=== PATIENT | male | born 1935 | race Caucasian/White ===

== ENCOUNTER 2017-04-13 17:35 | Inpatient (IN) ==
--- NOTE | 2017-04-13 18:01 | Emergency Department Note ---
Disposition Clinical Impression: Urinary retention, Obstructive uropathy, CLL (chronic lymphocytic leukemia), Hyponatremia Leukocytosis Qualifiers: Leukocytosis type: unspecified Qualified Code(s): D72.829 - Elevated white blood cell count, unspecified Disposition: Admitted As Inpatient Condition: Fair Referrals: Grady Bhagat DO [Primary Care Provider] - Forms: Work/School Release, ED Satisfaction Letter Time of Disposition: 19:09 General Adult HPI - General Chief complaint: ED Abdominal Pain Stated complaint: Constipation/Urinary retention x1 week Time Seen by Provider: 04/13/17 17:54 Source: patient Limitations: no limitations Nursing Notes Reviewed: Yes Vital Signs Reviewed: Yes - History of Present Illness HPI Narrative: 82-year-old has had trouble initiating urine for the last week. Now he feels constipated also. Pt Subjective Complaint: Unable to urinate Onset (ago): day(s) Location: abdomen Radiation: non-radiation Pain Severity: mild Pain Scale: 1 Consistency: constant Improves with: nothing Worsens with: nothing Treatments Prior to Arrival: none - Related Data Allergies Allergy/AdvReac Type Severity Reaction Status Date / Time bacitracin Allergy Hives Verified 04/13/17 17:41 [From Neosporin ([id number])] cephalexin [From Keflex] Allergy Hives Verified 04/13/17 17:41 Neomycin Allergy Hives Verified 04/13/17 17:41 [From Neosporin ([id number])] polymyxin B Allergy Hives Verified 04/13/17 17:41 [From Neosporin ([id number])] All systems ED: reviewed and negative except as stated. Constitutional: Denies: fever, chills, weakness, weight change Eyes: Denies: eye pain, eye discharge, vision change ENT ED: Denies: ear pain, throat pain, dental pain, hearing loss, epistaxis, congestion, dysphagia Cardiovascular: Denies: chest pain, palpitations, dyspnea on exertion, edema, syncope Respiratory: Denies: cough, dyspnea, wheezes, hemoptysis, stridor Gastrointestinal: Reports: constipation. Denies: abdominal pain, nausea, vomiting, diarrhea, hematemesis, melena, hematochezia Genitourinary: Reports: urgency. Denies: dysuria, frequency, hematuria Musculoskeletal: Denies: back pain, neck pain, arthralgia, myalgia Integumentary: Denies: rash, abrasion, lesions Neurological: Denies: headache, weakness, numbness, paresthesias, confusion, abnormal gait, vertigo Psychiatric: Denies: anxiety, depression, suicidal thoughts, homicidal thoughts , auditory hallucinations, visual hallucinations Endocrine: Denies: fatigue Hematological/Lymphatic: Denies: easy bleeding, easy bruising Allergic/Immunologic: Denies: facial swelling, urticaria Past Medical History - Past Medical History Medical history: Reports: cancer, hyperlipidemia, hypertension - Social History Smoking Status: Never smoker Smokeless Tobacco Status: No Alcohol use: Reports: none Drug use: Reports: none Physical Exam - General Limitations: no limitations General appearance: alert - Head Head exam: atraumatic, normocephalic, normal inspection - Eye Eye exam: Present: normal appearance, PERRL, EOMI - ENT ENT exam: normal exam, normal oropharynx, mucous membranes moist - Neck Neck exam: Present: normal inspection, full ROM, trachea midline - Chest Chest inspection: Present: normal inspection, symmetric chest wall rise - Respiratory Respiratory exam: Present: normal lung sounds bilaterally - Cardiovascular Cardiovascular exam: Present: regular rate, normal rhythm, normal heart sounds - Abdominal Exam Abdominal exam: Present: soft, tenderness. Absent: guarding, rebound Abdominal tenderness: Present: suprapubic - Extremities Exam Extremities exam: Present: normal inspection, full ROM. Absent: tenderness, pedal edema - Expanded Lower Extremity Exam Neurovascular/Tendon exam: Absent: motor deficit, sensory deficit, tendon deficit Gait: observed and normal - Back Exam Back exam: Present: normal inspection, full ROM. Absent: tenderness - Neurological Exam Neurological exam: Present: alert, oriented X3 - Psychiatric Psychiatric exam: Present: normal affect, normal mood Course - Reevaluation(s) Reevaluation #1: Wiseman catheter was placed with drainage of a total of 2400 mL of urine. Creatinine is elevated at 2.18 his white count is 49,800. We attempted to get old records but were unsuccessful. We will admit the patient IV antibiotics Wiseman drainage gentle hydration to see if the creatinine improves attempt to get old records from Vitaliy's daughters. Time: 19:07 - Consultations Consultation #1: Discussed with Dr.Tress hernandez. Time: 19:28 Consultation #2: Discussed with Dr. Foley, hydrate antibiotics Time: 19:29 Vital Signs Temperature 97.9 F 04/13/17 17:37 Pulse Rate 87 04/13/17 17:37 Respiratory Rate 18 04/13/17 17:37 Blood Pressure 119/77 04/13/17 17:37 O2 Sat by Pulse Oximetry 95 04/13/17 17:37 Temperature 97.9 F 04/13/17 17:37 Pulse Rate 89 04/13/17 18:45 Respiratory Rate 18 04/13/17 18:45 Blood Pressure 126/83 04/13/17 18:45 O2 Sat by Pulse Oximetry 95 04/13/17 18:45 Oxygen Delivery Oxygen Delivery Room Air Medical Decision Making - Lab Data Result diagrams: 04/13/17 18:10 04/13/17 18:10 Lab Results 04/13/17 04/13/17 04/13/17 Range/Units 18:10 18:10 18:27 WBC 49.8 H* (4.3-11.1) K/mcL RBC 5.03 (4.19-5.50) M/mcL Hgb 15.2 (12.9-16.9) g/dL Hct 44.4 (37.5-50.1) % MCV 88.3 (83.0-100.0) fL MCH 30.2 (28.0-33.3) pg MCHC 34.2 (31.6-35.5) g/dL RDW 13.2 (11.5-14.5) % Plt Count 235 (140-400) K/mcL MPV 9.3 L (9.4-12.4) fL Seg Neutrophils % 32.0 % Lymphocytes % 61.0 % Neutrophils # 15.9 H (1.6-8.9) K/mcL Lymphocytes # 30.4 H (0.6-4.6) K/mcL Reactive Lymphocytes Present A (Not Present) Smudge Cells Present A (Not Present) Platelet Estimate Normal (Normal) Sodium 124 L (136-145) mEq/L Potassium 3.8 (3.5-4.5) mEq/L Chloride 92 L (98-109) mEq/L Carbon Dioxide 18 L (19-29) mEq/L BUN 63 H (8-26) mg/dL Creatinine 2.18 H (0.72-1.25) mg/dL Est GFR ( Amer) 35 L (> 60) Est GFR (Non-Af Amer) 29 L (> 60) BUN/Creatinine Ratio 29 H (6-26) Glucose 117 H (70-99) mg/dL Calculated Osmolality 277 L (280-300) Calcium 8.8 (8.6-10.8) mg/dL Urine Color Yellow (Yellow) Urine Clarity Clear (Clear) Urine pH 5.0 (5.0-8.0) pH Units Ur Specific [place] 1.010 (1.010-1.025) Urine Protein Negative (Neg-Trace) mg/dL Urine Glucose (UA) Normal (Normal) mg/dL Urine Ketones Negative (Negative) mg/dL Urine Blood Moderate H (Negative) Urine Nitrite Negative (Negative) Urine Bilirubin Negative (Negative) Urine Urobilinogen Normal (Normal) mg/dL Ur Leukocyte Esterase Trace H (Negative) Urine Microscopic RBC 5-15 H (0-3) per hpf Urine Microscopic WBC 5-15 H (0-3) per hpf Ur Squamous Epith Cells Moderate H (None-Few) per lpf Urine Bacteria None Seen (None-Few) per hpf Hyaline Casts None Seen (None-Few) per lpf Ur Culture Indicated? YES A (NO)
[2017-04-13 18:28] LABS: Mean Corpuscular HGB Conc 34.2 g/dL (31.6-35.5); Mean Corpuscular Hemoglobin 30.2 pg (28.0-33.3); Red Cell Distribution Width 13.2 % (11.5-14.5)
[2017-04-13 18:29] LABS: Hematocrit 44.4 % (37.5-50.1); Hemoglobin 15.2 g/dL (12.9-16.9); Mean Corpuscular Volume 88.3 fL (83.0-100.0); Mean Platelet Volume 9.3 fL (9.4-12.4); Platelet Count 235 K/mcL (140-400); Red Blood Count 5.03 M/mcL (4.19-5.50)
[2017-04-13 18:40] LABS: Bilirubin,Urine Negative (Negative); Blood,Urine Moderate (Negative); Clarity,Urine Clear (Clear); Color,Urine Yellow (Yellow); Glucose,Urine (UA) Normal (Normal); Ketones,Urine Negative (Negative); Leukocyte Esterase,Urine Trace (Negative); Nitrite,Urine Negative (Negative); Protein,Urine Negative (Neg-Trace); Urobilinogen,Urine Normal (Normal)
[2017-04-13 18:41] LABS: Calcium 8.8 mg/dL (8.6-10.8); Potassium 3.8 mEq/L (3.5-4.5)
[2017-04-13 18:43] LABS: Bacteria,Urine None Seen per hpf (None-Few); Hyaline Casts,Urine None Seen per lpf (None-Few); Squamous Epithelial Cell,Urine Moderate per lpf (None-Few)
[2017-04-13 18:52] LABS: Lymphocytes # 30.4 K/mcL (0.6-4.6)
[2017-04-13 18:53] LABS: Neutrophils # 15.9 K/mcL (1.6-8.9); Platelet Estimate Normal (Normal); Reactive Lymphocytes Present (Not Present); Smudge Cells Present (Not Present)
[2017-04-13] MEDS ORDERED: Levofloxacin 500 MG/100 ML 500 MG/100 ML BAG IVPB ONE (19:06)
[2017-04-13] MEDS: 0.9 % Sodium Chloride 1,000 ML IVC SCH (19:36)
[2017-04-13] MEDS ORDERED: *HR* OxyCODONE Immed Rel 5 MG TABLET PO PRN (19:54)
[2017-04-13] MEDS ORDERED: Naloxone 0.4 MG/ML INJ IVP PRN (19:54)
[2017-04-13] MEDS ORDERED: Ondansetron 4 MG/2 ML VIAL IVP PRN (19:54)
[2017-04-13] MEDS ORDERED: Acetaminophen 325 MG TABLET PO PRN (19:54)
[2017-04-13] MEDS ORDERED: *HR* Morphine 2 MG/ML SYRINGE IVP PRN (19:54)
[2017-04-13] MEDS ORDERED: Nitroglycerin 0.4 MG TAB.SUBL SL PRN (20:00)
[2017-04-13] MEDS ORDERED: Ipratropium/Albuterol Neb 3 ML IH PRN (20:00)
--- NOTE | 2017-04-13 20:03 | Internal Med History&Physical ---
Date of Encounter: 04/13/17 Time of Encounter: 20:01 Assessment and Plan (1) Sepsis Current visit: Yes Status: Acute Sepsis Secondary to UTI versus acute bacterial bronchitis Continue Levaquin started in the emergency room Continue hydration, order lactic acid and blood cultures Omeprazole for GI prophylaxis and Lovenox for DVT prophylaxis. The patient will be admitted as inpatient, expected to stay more than 2 midnights. DNR CC arrest DNI. Time spent on this admission 40 minutes. High risk due to sepsis Qualifiers: Sepsis type: sepsis due to unspecified organism Qualified Code(s): A41.9 - Sepsis, unspecified organism (2) Bronchitis Current visit: Yes Status: Acute Viral versus bacterial (3) Acute renal failure Current visit: Yes Status: Acute Acute on chronic renal failure possible CK D3/4 Possibly related to obstructive uropathy, keep Wiseman catheter Await report from CT scan of the abdomen sent from the ER and consider urology consult if needed Qualifiers: Acute renal failure type: unspecified Qualified Code(s): N17.9 - Acute kidney failure, unspecified (4) Hypertension Current visit: Yes Status: Acute Continue amlodipine, Toprol Hold enalapril due to acute renal failure use hydralazine IV as needed Qualifiers: Hypertension type: essential hypertension Qualified Code(s): I10 - Essential (primary) hypertension (5) CLL (chronic lymphocytic leukemia) Current visit: Yes Status: Acute Leukocytosis likely related to infection in combination to CLL Dr. Hernández was contacted (6) Hyponatremia Current visit: Yes Status: Acute Unclear etiology, possibly related to volume overload/urinary retention Send urine sodium and osmolality Monitor sodium levels (7) Leukocytosis Current visit: Yes Status: Acute Qualifiers: Leukocytosis type: lymphocytosis Qualified Code(s): D72.820 - Lymphocytosis (symptomatic) (8) Obstructive uropathy Current visit: Yes Status: Acute Internal Medicine - H&P: HPI Chief complaint: Constipation and urinary retention Admitted From: Emergency Dept History of present illness: Mr. Marinelli is a 82 year old male with a past medical history of CLL without any treatment, BPH, TIAs, came to emergency room complaining of severe constipation and and difficulty voiding for the past week. Wiseman catheter was placed at the emergency room and 2400 mL of urine were obtained. He says he experienced some dysuria. Also he started bringing up dark phlegm 3 days ago and has been coughing constantly. His heart rate was 96 white blood cells are 49.8 lymphocytes 30.4 neutrophils 15.9 with a smudge cells. Sodium was found to be 124 BUN 63 and creatinine 2.18. He is unaware of kidney problems in the past. Efforts were done to obtain information from [facility] that have been unsuccessful so far. His urinalysis shows 15 white blood cells. The physician contacted Dr. Jones from the oncology service who recommended the patient's admission and evaluation in the morning. Levaquin was started. Feels very weak and denies any other complaint at the moment. 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 Everyone is healthy Internal Medicine - H&P: Meds Allergies bacitracin [From Neosporin ([id number]-[id number])] Allergy (Verified 04/13/17 17:41) Hives cephalexin [From Keflex] Allergy (Verified 04/13/17 17:41) Hives Neomycin [From Neosporin ([id number])] Allergy (Verified 04/13/17 17:41) Hives polymyxin B [From Neosporin ([id number]-[id number])] Allergy (Verified 04/13/17 17:41) Hives All Systems PM: A 10-system review of systems was performed and is negative for pertinent findings except as documented above in the HPI. Review of systems: Short of breath, weak. Other systems out of the 10 reviewed were negative. - Constitutional Vitals: Temp Pulse Resp BP Pulse Ox 97.9 F 83 18 138/76 92 04/13/17 17:37 04/13/17 19:37 04/13/17 18:45 04/13/17 19:37 04/13/17 19:37 General appearance: Present: A&O X 3 - Head Head exam: Present: atraumatic, normocephalic - Eye Eye exam: Present: PERRL, conjuntiva pink, sclera anicteric Pupils: Present: PERRL - Neck Neck exam general surgery: Present: supple, trachea midline. Absent: lymphadenopathy - Respiratory Respiratory exam: Present: CTAB, rales (Diffuse crackles). Absent: accessory muscle use, rhonchi, wheezes - Cardiovascular Cardiovascular exam: Present: RRR, +S1, +S2. Absent: diastolic murmur, gallop, rubs, systolic murmur - GI/Abdominal GI/Abdominal exam: Present: normal bowel sounds, soft, tenderness (Mild lower abdominal tenderness), no peritoneal signs. Absent: distended - Extremities Exam Extremities exam: Present: warm, radial pulses palpable and symetrical. Absent : calf tenderness, cyanotic, pedal edema - Neurological Exam Neurological exam: Present: CN II-XII intact, oriented X3, no focal deficits. Absent: pronater drift, facial droop, speech deficit - Skin Skin exam: Present: dry, intact Additional comments: Wiseman catheter in place Internal Med - H&P Results - Labs CBC & Chem 7: 04/13/17 18:10 04/13/17 18:10 Labs: Short CBC 04/13/17 Range/Units 18:10 WBC 49.8 H* (4.3-11.1) K/mcL Hgb 15.2 (12.9-16.9) g/dL Hct 44.4 (37.5-50.1) % Plt Count 235 (140-400) K/mcL Neutrophils # 15.9 H (1.6-8.9) K/mcL BMP 04/13/17 18:10 Sodium 124 L Potassium 3.8 Chloride 92 L Carbon Dioxide 18 L BUN 63 H Creatinine 2.18 H Glucose 117 H Calcium 8.8 Urine 04/13/17 Range/Units 18:27 Urine Color Yellow (Yellow) Urine Clarity Clear (Clear) Urine pH 5.0 (5.0-8.0) pH Units Ur Specific [place] 1.010 (1.010-1.025) Urine Protein Negative (Neg-Trace) mg/dL Urine Glucose (UA) Normal (Normal) mg/dL
[2017-04-13 20:13] LABS: INR 1.2; Prothrombin Time 12.8 Seconds (9.4-12.1)
[2017-04-13 21:57] LABS: Sodium, Urine < 20.0 mEq/L
[2017-04-13 22:33] LABS: Osmolality,Urine 248 mOsm/kg (300-1090)
[2017-04-14] MEDS: Lactulose Oral Soln 20 GM/30 ML UDC PO SCH ×2 (04:55→05:19)
[2017-04-14] MEDS ORDERED: Menthol 9.1 MG LOZENGE PO PRN (05:04)
[2017-04-14 05:17] LABS: Hemoglobin 14.2 g/dL (12.9-16.9); Immature Platelets 2.6 % (1.1-6.1); Mean Corpuscular HGB Conc 33.8 g/dL (31.6-35.5); Mean Corpuscular Hemoglobin 30.2 pg (28.0-33.3); Mean Corpuscular Volume 89.4 fL (83.0-100.0); Mean Platelet Volume 9.7 fL (9.4-12.4); Red Blood Count 4.7 M/mcL (4.19-5.50); Red Cell Distribution Width 13.2 % (11.5-14.5)
[2017-04-14 05:32] LABS: Calcium 8.4 mg/dL (8.6-10.8); Potassium 3.3 mEq/L (3.5-4.5)
[2017-04-14] MEDS ORDERED: *HR* Enoxaparin 30 MG/0.3 ML SYRINGE SQ SCH (06:00)
[2017-04-14] MEDS: amLODIPine 5 MG TABLET PO SCH (07:58)
[2017-04-14] MEDS: Aspirin Enteric Coated 81 MG Tablet PO SCH (07:58)
[2017-04-14] MEDS: Metoprolol XL (24 HR) Succ 25 MG TAB.ER.24H PO SCH (07:58)
--- NOTE | 2017-04-14 08:40 | Oncology Inp Consult Note ---
Date of Encounter: 04/14/17 Time of Encounter: 12:00 Assessment and Plan (1) CLL (chronic lymphocytic leukemia) Status: Chronic Assessment and plan: Lymphocytic leukemia with lymphocytosis without any anemia or thrombocytopenia patient had not required any treatment No B symptosm or adenopathy/organomegaly. Likely stage 0. UTI/? retention, hx BPH Wiseman drainage. Levafloxacin. UC pending. WBC trending down. Lab works discussed with patient. He will follow up with his providers for CLL and return to our clinic as needed. Plan reviewed with patient and family members. - Data of Consult Requesting Physician: Pedro Velasco MD Primary Care Provider: Grady Bhagat, - Consult Narrative Reason for consult: CLL History of present illness: Mr. Marinelli is a 82 year old male with a known diagnosis of chronic lymphocytic leukemia followed outside with medical history also significant for benign prostatic hypertrophy, transient ischemic attacks, hospitalized with possible UTI/bronchitis patient had difficulty eating and a Wiseman catheter was placed which drained 2.4 L of urine. Urinalysis was? Positive was started on levofloxacin oncology service consulted as patient had a very high white count of 49,000 lymphocytosis and with his prior diagnosis of chronic lymphocytic leukemia. Renal insufficiency, dehydration requiring hospitalization. As per patient report he has not required treatment for CLL. He is a never smoker. X-ray showed no acute process on admission. A CT scan of the abdomen showed? Urethritis with thickening and no stones or hydronephrosis. Patient is being followed by his PCP for CLL, was diagnosed with lab works by oncologist Dr. Lindsey/?[place]. No palpable lumps B symptoms. A 14 point review of systems is completely otherwise negative. Past Med Surg Social Fam HX - Past Medical History Medical history: cancer, hyperlipidemia, hypertension, other Psychiatric history: no psych history - Past Surgical History Surgical History: appendectomy, herniorrhaphy - Social History Smoking Status: Never smoker Packs per day: Quit 40 years ago Smokeless Tobacco Status: No Alcohol use: none Drug use: none - Family History Mother Living Status: Hx Family Cancer: Yes Medications and Allergies Aspirin 81 mg PO DAILY 04/14/17 [History] Enalapril Maleate [Vasotec] 5 mg PO BID 04/14/17 [History] Metoprolol XL (24 HR) Succ [Toprol XL] 25 mg PO DAILY 04/14/17 [History] Allergies bacitracin [From Neosporin ([id number])] Allergy (Verified 04/14/17 08:24) Hives cephalexin [From Keflex] Allergy (Verified 04/14/17 08:24) Hives Neomycin [From Neosporin (gms-lne-loeet)] Allergy (Verified 04/14/17 08:24) Hives polymyxin B [From Neosporin ([id number])] Allergy (Verified 04/14/17 08:24) Hives Review of systems: as in HPI Oncology - Exam - Constitutional Vitals: Temp Pulse Resp BP Pulse Ox 98.0 F 84 18 143/73 97 04/14/17 07:00 04/14/17 07:00 04/14/17 07:00 04/14/17 07:00 04/14/17 07:00 General appearance: average body habitus, no acute distress - Head Head exam: Present: atraumatic, normal inspection - Eye Eye exam: Present: sclera anicteric - ENT ENT exam: Present: mucous membranes moist - Neck Additional comments: no thyromegaly or adenopathy - Respiratory Respiratory exam: Present: CTAB - Cardiovascular Cardiovascular exam: Present: +S1, +S2 - GI/Abdominal GI/Abdominal exam: Present: normal bowel sounds, soft Additional comments: no HSM - Extremities Exam Extremities exam: Present: normal inspection - Neurological Exam Neurological exam: Present: alert, oriented X3, no focal deficits - Psychiatric Psychiatric exam: Present: normal mood - Skin Skin exam: Present: dry, normal color Oncology - Results - Labs Labs: Short CBC 04/14/17 Range/Units 04:33 WBC 20.7 H D (4.3-11.1) K/mcL Hgb 14.2 (12.9-16.9) g/dL Hct 42.0 (37.5-50.1) % Plt Count 200 (140-400) K/mcL BMP 04/14/17 04/14/17 00:01 04:33 Sodium 130 L 133 L Potassium 3.3 L Chloride 101 Carbon Dioxide 22 BUN 50 H D Creatinine 1.60 H Glucose 120 H Calcium 8.4 L - Imaging and Cardiology CT scan - abdomen Status: image reviewed by me Consult Discharge Plan - Plan Referrals: Grady Bhagat DO [Primary Care Provider] -
[2017-04-14] MEDS ORDERED: *HR* OxyCODONE Immed Rel 5 MG TABLET PO PRN (11:13)
--- NOTE | 2017-04-14 12:28 | Internal Med Progress Note ---
Date of Encounter: 04/14/17 Time of Encounter: 08:35 - Assessment and plan (1) Sepsis Current Visit: Yes Status: Suspected Assessment and plan: Follow urine cultures. Patient with sepsis most likely from acute urinary tract infection. CT of the abdomen and pelvis shows ureteritis involving the right ureter. Will follow culture results. On IV antibiotics. Moderate risk for complications. Qualifiers: Sepsis type: Escherichia coli Qualified Code(s): A41.51 - Sepsis due to Escherichia coli [E. coli] (2) Acute renal failure Current Visit: Yes Status: Acute Assessment and plan: Improving renal function. Continue IV hydration. Replace potassium. Qualifiers: Acute renal failure type: with acute tubular necrosis Qualified Code(s): N17.0 - Acute kidney failure with tubular necrosis (3) Bronchitis Current Visit: Yes Status: Acute Assessment and plan: On IV antibiotics. Cough suppressants as needed (4) Hyponatremia Current Visit: Yes Status: Acute Assessment and plan: Improving. could be from hypovolemic hyponatremia. Continue intravenous replacement. (5) Leukocytosis Current Visit: Yes Status: Acute Assessment and plan: Improving. 20 today. Underlying CLL. With response to acute sepsis. Qualifiers: Leukocytosis type: lymphocytosis Qualified Code(s): D72.820 - Lymphocytosis (symptomatic) (6) Obstructive uropathy Current Visit: Yes Status: Acute Assessment and plan: Due to prostate enlargement. Wiseman catheter in place to relieve obstruction. CT of the abdomen does not show any obstructing stones but there is mild prominence of both renal collecting systems. We will start patient on Flomax for BPH. (7) Urinary retention Current Visit: Yes Status: Acute Assessment and plan: Likely from BPH (8) Benign prostate hyperplasia Current Visit: Yes Status: Acute Assessment and plan: Patient has severe prostatomegaly on CT scan. This is likely causing the patient's urinary retention. Started on Flomax. We will see how he responds to it. If patient continues to have poor urinary output and urinary retention despite the use of Flomax, we will discharge him on Wiseman catheter and arrange outpatient follow-up with urology. Qualifiers: Prostatic enlargement morphology: unspecified morphology Lower urinary tract symptom presence: symptoms present Qualified Code(s): N40.1 - Benign prostatic hyperplasia with lower urinary tract symptoms (9) CLL (chronic lymphocytic leukemia) Current Visit: Yes Status: Chronic Assessment and plan: Oncology consulted. Follow recommendations. - Subjective Interval history: Patient is feeling much better today. No abdominal pain. No nausea or vomiting. No dysuria. Has a Wiseman catheter in place. Tolerating diet well. No fever or chills reported overnight. - Constitutional Vitals: Temp Pulse Resp BP Pulse Ox 97.6 F 84 18 124/79 93 04/14/17 11:42 04/14/17 11:42 04/14/17 11:42 04/14/17 11:42 04/14/17 11:42 General appearance: Present: cooperative, A&O X 3, pleasant, no acute distress, answers questions appropriately - Neck Neck exam general surgery: Present: supple, trachea midline. Absent: lymphadenopathy - Respiratory Respiratory exam: Present: CTAB. Absent: accessory muscle use, rales, rhonchi, wheezes - Cardiovascular Cardiovascular exam: Present: RRR, +S1, +S2. Absent: diastolic murmur, gallop, rubs, systolic murmur - GI/Abdominal GI/Abdominal exam: Present: normal bowel sounds, soft, no peritoneal signs. Absent: distended, tenderness - Additional comments: Wiseman catheter in place with blood-tinged urine output - Extremities Exam Extremities exam: Present: warm, radial pulses palpable and symetrical. Absent : calf tenderness, cyanotic, pedal edema - Neurological Exam Neurological exam: Present: CN II-XII intact, oriented X3, no focal deficits, strengths equal and symetr throughout. Absent: facial droop, speech deficit Internal Medicine: Result - Labs CBC & Chem 7: 04/14/17 04:33 04/14/17 04:33 Labs: Short CBC 04/14/17 Range/Units 04:33 WBC 20.7 H D (4.3-11.1) K/mcL Hgb 14.2 (12.9-16.9) g/dL Hct 42.0 (37.5-50.1) % Plt Count 200 (140-400) K/mcL BMP 04/14/17 04/14/17 00:01 04:33 Sodium 130 L 133 L Potassium 3.3 L Chloride 101 Carbon Dioxide 22 BUN 50 H D Creatinine 1.60 H Glucose 120 H Calcium 8.4 L - ABG Interpretation ABG results: PT/INR, D-dimer PT 12.8 Seconds (9.4-12.1) H 04/13/17 18:10 Consult Discharge Plan - Plan Referrals: Grady Bhagat DO [Primary Care Provider] - - Attending Attestation This document has been at least partially created by [employer] recognition technology by Dr. Velasco. Errors in grammar, wording or other phrases may exist. If errors are found after the documentation is signed, they will be addressed individually in the addendum section of this document when appropriate.
[2017-04-14] MEDS: 0.9 % Sodium Chloride w KCl 20 MEQ/1,000 ML MLS IVC SCH (14:40)
[2017-04-14] MEDS ORDERED: Levofloxacin 500 MG/100 ML 500 MG/100 ML BAG IVPB SCH (19:30)
[2017-04-15] MEDS: 0.9 % Sodium Chloride w KCl 20 MEQ/1,000 ML MLS IVC SCH (02:35)
[2017-04-15] MEDS: Lactulose Oral Soln 20 GM/30 ML UDC PO SCH (05:32)
[2017-04-15] MEDS ORDERED: *HR* Enoxaparin 40 MG/0.4 ML SYRINGE SQ SCH (06:00)
[2017-04-15 06:23] LABS: Basophils # 0.1 K/mcL (0.0-0.2); Basophils % 0.3 %; Eosinophils # 0.1 K/mcL (0.0-0.6); Eosinophils % 0.3 %; Hematocrit 41.1 % (37.5-50.1); Hemoglobin 14.4 g/dL (12.9-16.9); Immature Granulocytes % 0.6 % (0-4); Lymphocytes # 16.3 K/mcL (0.6-4.6); Lymphocytes % 70.4 %; Mean Corpuscular Hemoglobin 31.3 pg (28.0-33.3); Mean Corpuscular Volume 89.3 fL (83.0-100.0); Mean Platelet Volume 9.1 fL (9.4-12.4); Monocytes # 0.9 K/mcL (0.0-1.3); Monocytes % 3.9 %; Neutrophils # 5.7 K/mcL (1.6-8.9); Platelet Count 191 K/mcL (140-400); Red Cell Distribution Width 13.4 % (11.5-14.5); Segmented Neutrophils % 24.5 %
[2017-04-15 06:46] LABS: BUN/Creatinine Ratio 28 (6-26); Calcium 8.5 mg/dL (8.6-10.8); Carbon Dioxide 21 mEq/L (19-29); Chloride 105 mEq/L (98-109); Glucose 127 mg/dL (70-99); Osmolality,Calculated 285 (280-300); Potassium 3.7 mEq/L (3.5-4.5); Sodium 134 mEq/L (136-145); eGFR For African Americans > 60 (> 60); eGFR For Non-African Americans > 60 (> 60)
[2017-04-15 06:48] VITALS: BP 158/93
[2017-04-15 06:48] LABS: Blood Urea Nitrogen 28 mg/dL (8-26)
[2017-04-15 06:59] LABS: Platelet Estimate Normal (Normal)
[2017-04-15 07:00] LABS: Reactive Lymphocytes Present (Not Present)
[2017-04-15] MEDS: Metoprolol XL (24 HR) Succ 25 MG TAB.ER.24H PO SCH (07:45)
[2017-04-15] MEDS: Aspirin Enteric Coated 81 MG Tablet PO SCH (07:45)
[2017-04-15] MEDS: amLODIPine 5 MG TABLET PO SCH (07:45)
[2017-04-15] MEDS ORDERED: Metoprolol XL (24 HR) Succ 25 MG TAB.ER.24H PO SCH (09:00)
[2017-04-15] MEDS: 0.9 % Sodium Chloride 1,000 ML IVC SCH (09:33)
--- NOTE | 2017-04-15 09:57 | Discharge Summary ---
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 (4) Hyponatremia Priority: Primary Status: Resolved (5) Acute renal failure Priority: Primary Status: Resolved Qualifiers: Acute renal failure type: unspecified Qualified Code(s): N17.9 - Acute kidney failure, unspecified (6) Hypertension Priority: Secondary Status: Chronic Qualifiers: Hypertension type: essential hypertension Qualified Code(s): I10 - Essential (primary) hypertension (7) Benign prostate hyperplasia Priority: Primary Status: Chronic Qualifiers: Prostatic enlargement morphology: unspecified morphology Lower urinary tract symptom presence: symptoms present Qualified Code(s): N40.1 - Benign prostatic hyperplasia with lower urinary tract symptoms - Discharge Medications Prescriptions: levoFLOXacin [Levaquin] 500 mg PO DAILY #11 tablet Metoprolol XL (24 HR) Succ [Toprol Xl] 50 mg PO DAILY #30 tab.er.24h Tamsulosin [Flomax] 0.4 mg PO DAILY #30 capsule Home Medications: Aspirin 81 mg PO DAILY 04/14/17 [History] Enalapril Maleate [Vasotec] 5 mg PO BID 04/14/17 [History] Metoprolol XL (24 HR) Succ [Toprol Xl] 50 mg PO DAILY #30 tab.er.24h 04/15/17 [ Rx] Tamsulosin [Flomax] 0.4 mg PO DAILY #30 capsule 04/15/17 [Rx] levoFLOXacin [Levaquin] 500 mg PO DAILY #11 tablet 04/15/17 [Rx] Allergies/Adverse Reactions: Allergies bacitracin [From Neosporin ([id number])] Allergy (Verified 04/14/17 08:24) Hives cephalexin [From Keflex] Allergy (Verified 04/14/17 08:24) Hives Neomycin [From Neosporin ([id number])] Allergy (Verified 04/14/17 08:24) Hives polymyxin B [From Neosporin ([id number])] Allergy (Verified 04/14/17 08:24) Hives Date of admission: 04/13/17 21:49 Primary care physician: Grady Bhagat, Discharging clinician: Karina Zheng Anticipated date of discharge: 04/15/17 - Patient Status Disposition: Home, Self-Care Condition: Fair Functional capacity at discharge: independent ambulation Overall status at discharge: patient is progressing back to baseline - Discharge Instructions Instructions: Metoprolol (By mouth), Levofloxacin (By mouth), Tamsulosin (By mouth), Urinary Retention in Men (GEN), Wiseman Catheter Placement and Care (GEN) Follow Up With: Grady Bhagat DO [Primary Care Provider] - 04/22/17 9:30 am Vance Salter MD [Partnered Physician] - 04/25/17 9:30 am Additional Instructions: F/up with Urology in 1-2 weeks for Wiseman removal; - Diet and Activity Activity: resume usual activities as tolerated, other (To be discharged with indwelling Wiseman catheter; catheter care as directed;) Diet: low fat, low cholesterol, low salt diet Hospital course: Mr. Marinelli is a 82 year old male with the above medical problems who was admitted with urinary retention and abdominal pain. Patient was noted to have sepsis due to UTI. CT abdomen/pelvis showed changes suggestive of right ureteritis along with significant prostatomegaly. He was started on empiric IV antibiotics along with aggressive IV hydration. Acute kidney injury was noted likely due to obstructive uropathy and sepsis, which is currently improved. Patient received indwelling Wiseman catheter for urinary retention and he was noted to retain urine upon removal. Wiseman catheter was reinserted and patient had mild hematuria, likely due to the trauma, which is currently improving. Patient was started on Flomax. Blood and urine cultures show no growth so far. He was noted to have hypovolemic hyponatremia, serum sodium is currently improving, at 134 with IV hydration. Patient had significant leukocytosis at the time of admission, most of which is due to underlying CLL with an acute response to sepsis. WBC count is currently stable around 23. He was evaluated by oncology and recommended outpatient follow-up. He is currently medically stable for discharge and eager to be discharged home. He will be sent home with indwelling Wiseman catheter, patient and family were educated about the need to follow up with urology as outpatient for further evaluation of BPH and to plan for removal of Wiseman catheter and they verbalized understanding. - Time Spent with Patient Total time spent providing and/or coordinating discharge services: Greater than 30 minutes (45 min) - Constitutional Vitals: Temp Pulse Resp BP Pulse Ox 97.8 F 93 16 158/93 97 04/15/17 06:44 04/15/17 06:44 04/15/17 06:44 04/15/17 06:44 04/15/17 06:44 General appearance: Present: A&O X 3, answers questions appropriately - Respiratory Respiratory exam: Present: CTAB. Absent: accessory muscle use, rales, rhonchi, wheezes - Cardiovascular Cardiovascular exam: Present: RRR, +S1, +S2. Absent: diastolic murmur, gallop, rubs, systolic murmur - VTE Documentation of Mechanical Device: Intermittent pneumatic compression device
[2017-04-15] MEDS ORDERED: Metoprolol XL (24 HR) Succ 25 MG TAB.ER.24H PO ONE (10:05)
[2017-04-15] MEDS ORDERED: Levofloxacin 500 MG/100 ML 500 MG/100 ML BAG IVPB SCH ×2 (19:30)
[2017-04-16] MEDS ORDERED: Metoprolol XL (24 HR) Succ 50 MG TAB.ER.24H PO SCH (09:00)
== END 2017-04-15 13:16 | disposition home or self-care (01) | DRG 871 ==
LOC: EMEROO 17:35 → 2ANU 17:35 → SUATTDRO 21:49
PROVIDERS: ADMIT Internal Medicine; ATTEND Internal Medicine

== ENCOUNTER 2018-02-25 15:18 | Inpatient (IN) ==
--- NOTE | 2018-02-25 15:32 | Emergency Department Note ---
Disposition Clinical Impression: Shortness of breath Atrial fibrillation Qualifiers: Atrial fibrillation type: chronic Qualified Code(s): I48.2 - Chronic atrial fibrillation Congestive heart failure Qualifiers: Heart failure type: unspecified Heart failure chronicity: acute on chronic Qualified Code(s): I50.9 - Heart failure, unspecified Pneumonia Qualifiers: Pneumonia type: due to unspecified organism Laterality: bilateral Lung location : unspecified part of lung Qualified Code(s): J18.9 - Pneumonia, unspecified organism Disposition: Admitted As Inpatient Referrals: Grady Bhagat DO [Primary Care Provider] - Forms: ED Satisfaction Letter General Adult HPI - General Chief complaint: ED Shortness of Breath/Dyspnea Stated complaint: JESSE Time Seen by Provider: 02/25/18 15:29 Source: patient Limitations: no limitations Nursing Notes Reviewed: Yes Vital Signs Reviewed: Yes - History of Present Illness HPI Narrative: One-week history of increasing shortness of breath. Dry cough started yesterday. No fevers or chills. Denies any chest pain nausea vomiting or diarrhea. Did have an elevated d-dimer that was performed at an outpatient clinic yesterday. Pain Scale: 0 - Related Data Home Medications Medication Instructions Recorded Confirmed Enalapril Maleate [Vasotec] 5 mg PO BID 04/14/17 12/28/17 Metoprolol XL (24 HR) Succ [Toprol 50 mg PO HS 05/13/17 12/28/17 Xl] Ascorbic Acid [Vitamin C] 500 mg PO DAILY 12/28/17 12/28/17 Aspirin Enteric Coated [Aspirin EC] 81 mg PO DAILY 12/28/17 12/28/17 Cholecalciferol (D-3) [Vitamin D] 2,000 unit PO DAILY 12/28/17 12/28/17 Furosemide [Lasix] 20 mg PO DAILY 12/28/17 12/28/17 [place] Xtr/Zinc Picolin [Saw 1 each PO DAILY 12/28/17 12/28/17 [place] Capsule] Previous Rx's Medication Instructions Recorded Rivaroxaban [Xarelto] 20 mg PO 1700 #30 tablet 12/30/17 Allergies Allergy/AdvReac Type Severity Reaction Status Date / Time bacitracin Allergy Hives Verified 12/27/17 18:57 [From Neosporin ([id number])] cephalexin [From Keflex] Allergy Hives Verified 12/27/17 18:57 Neomycin Allergy Hives Verified 12/27/17 18:57 [From Neosporin ([id number])] polymyxin B Allergy Hives Verified 12/27/17 18:57 [From Neosporin ([id number])] All systems ED: reviewed and negative except as stated. Constitutional: Denies: fever, chills Cardiovascular: Denies: chest pain, syncope Respiratory: Reports: cough, dyspnea Gastrointestinal: Denies: abdominal pain, nausea, vomiting, diarrhea Genitourinary: Denies: urgency, dysuria, frequency Musculoskeletal: Denies: back pain, neck pain Integumentary: Denies: rash Neurological: Denies: headache, weakness Past Medical History - Past Medical History Attestation: Yes The following information was validated with the patient. Source: patient Medical history: Reports: cancer, hyperlipidemia, hypertension, other Surgical history: Reports: appendectomy, herniorrhaphy Psychiatric history: Reports: no psych history - Social History Smoking Status: Former smoker Smokeless Tobacco Status: No Alcohol use: Reports: none Drug use: Reports: none Physical Exam - General Limitations: no limitations General appearance: alert, in no apparent distress - Head Head exam: atraumatic, normocephalic, normal inspection - Eye Eye exam: Present: normal appearance, PERRL, EOMI. Absent: scleral icterus - ENT ENT exam: normal exam, normal oropharynx, mucous membranes moist - Neck Neck exam: Present: normal inspection, full ROM, trachea midline - Chest Chest inspection: Present: normal inspection, symmetric chest wall rise. Absent : tenderness - Respiratory Respiratory exam: Present: normal lung sounds bilaterally, other (Diminished and left lower lung mcgregor). Absent: respiratory distress, accessory muscle use - Cardiovascular Cardiovascular exam: Present: regular rate, irregular rhythm, normal heart sounds - Abdominal Exam Abdominal exam: Present: soft, Non-Tender, scar (Midline well-healed). Absent: tenderness, distention, guarding, rigidity, organomegaly - Extremities Exam Extremities exam: Present: normal inspection, full ROM, normal capillary refill , pedal edema (Mild pitting edema to knees.). Absent: tenderness - Back Exam Back exam: Present: normal inspection, full ROM, tenderness - Neurological Exam Neurological exam: Present: alert, oriented X3 - Psychiatric Psychiatric exam: Present: normal affect, normal mood - Skin Skin exam: Present: warm, dry, intact, other (Patient has cyanosis of first 3 digits on both hands. States this is been going on for several months. Also a nonhealing wound to the DIP of third digit on the left hand. Does not appear to be infected.). Absent: rash Course Course Narrative: Male patient presents emergency department complaining of having lab drawn yesterday at an outpatient clinic for follow-up and noted to have an elevated d- dimer. He reports possibly one-week history of shortness of breath with a cough that started yesterday. He states the cough is dry. Denies any fevers or chills. Does have a history of tuberculosis. Denies any chest pain. States that he has been having an increase in swelling in his lower extremities. He does not appear to be in distress while he is resting in bed. He ambulated to the room without any difficulty. Family and the patient our concern for possible pulmonary embolism. They were told there was signs of this possibly on a chest x-ray that was done yesterday as well. He was called this morning to tell him that the d-dimer was elevated. We will get a chest x- ray as well as a CT of patient's chest. A basic lab workup. The patient's lung sounds are clear and heart tones are normal. He does have some diminished lung sounds in the left lower mcgregor. - Reevaluation(s) Reevaluation #1: Patient does have a bilateral blue pneumonia. We will start him on Levaquin. He also has symptoms pleural effusions. We will admit patient to the hospital. He is agreeable with this. Time: 18:37 - Consultations Consultation #1: Dr Morfin accepted patient in stable condition. Time: 19:43 Vital Signs Temperature 97.7 F 02/25/18 15: Pulse Rate 78 02/25/18 15:18 Respiratory Rate 22 02/25/18 15:18 Blood Pressure 145/102 02/25/18 15:18 O2 Sat by Pulse Oximetry 95 02/25/18 15:18 Temperature 97.7 F 02/25/18 15: Pulse Rate 77 02/25/18 18:26 Respiratory Rate 16 02/25/18 18:26 Blood Pressure 128/84 02/25/18 18:26 O2 Sat by Pulse Oximetry 96 02/25/18 18:26 Oxygen Delivery Oxygen Delivery Room Air Medical Decision Making - Medical Records Medical records reviewed: Yes I reviewed the patient's medical records. - Lab Data Lab results reviewed: Yes I reviewed the patient's lab results. Result diagrams: 02/25/18 15:46 02/25/18 16:50 Lab Results 02/25/18 02/25/18 02/25/18 Range/Units 15:46 15:46 15:46 WBC 13.5 H (4.3-11.1) K/mcL RBC 5.23 (4.19-5.50) M/mcL Hgb 16.2 (12.9-16.9) g/dL Hct 49.5 (37.5-50.1) % MCV 94.6 (83.0-100.0) fL MCH 31.0 (28.0-33.3) pg MCHC 32.7 (31.6-35.5) g/dL RDW 13.8 (11.5-14.5) % Plt Count 162 (140-400) K/mcL MPV 9.2 L (9.4-12.4) fL Immature Gran % 0.2 (0-4) % Seg Neutrophils % 31.9 % Lymphocytes % 60.2 % Monocytes % 6.7 % Eosinophils % 0.4 % Basophils % 0.6 % Neutrophils # 4.3 (1.6-8.9) K/mcL Lymphocytes # 8.1 H (0.6-4.6) K/mcL Monocytes # 0.9 (0.0-1.3) K/mcL Eosinophils # 0.1 (0.0-0.6) K/mcL Basophils # 0.1 (0.0-0.2) K/mcL Platelet Estimate Normal (Normal) Sodium (136-145) mEq/L Potassium (3.5-5.1) mEq/L Chloride (98-107) mEq/L Carbon Dioxide (23-29) mEq/L BUN (8-23) mg/dL Creatinine (0.70-1.30) mg/dL Est GFR ( Amer) (> 60) Est GFR (Non-Af Amer) (> 60) BUN/Creatinine Ratio (6-26) Glucose (70-105) mg/dL Calculated Osmolality (280-300) Lactic Acid 1.7 (0.5-2.2) mmol/L Calcium (8.6-10.3) mg/dL Troponin I 0.19 H* (< 0.04) ng/mL B-Natriuretic Peptide (Less than 100) pg/mL Specimen Rejected 02/25/18 02/25/18 02/25/18 Range/Units 15:46 15:46 16:50 WBC (4.3-11.1) K/mcL RBC (4.19-5.50) M/mcL Hgb (12.9-16.9) g/dL Hct (37.5-50.1) % MCV (83.0-100.0) fL MCH (28.0-33.3) pg MCHC (31.6-35.5) g/dL RDW (11.5-14.5) % Plt Count (140-400) K/mcL MPV (9.4-12.4) fL Immature Gran % (0-4) % Seg Neutrophils % % Lymphocytes % % Monocytes % % Eosinophils % % Basophils % % Neutrophils # (1.6-8.9) K/mcL Lymphocytes # (0.6-4.6) K/mcL Monocytes # (0.0-1.3) K/mcL Eosinophils # (0.0-0.6) K/mcL Basophils # (0.0-0.2) K/mcL Platelet Estimate (Normal) Sodium 137 (136-145) mEq/L Potassium 4.2 (3.5-5.1) mEq/L Chloride 102 (98-107) mEq/L Carbon Dioxide 26 (23-29) mEq/L BUN 17 (8-23) mg/dL Creatinine 0.92 (0.70-1.30) mg/dL Est GFR ( Amer) > 60 (> 60) Est GFR (Non-Af Amer) > 60 (> 60) BUN/Creatinine Ratio 18 (6-26) Glucose 93 (70-105) mg/dL Calculated Osmolality 285 (280-300) Lactic Acid (0.5-2.2) mmol/L Calcium 9.4 (8.6-10.3) mg/dL Troponin I (< 0.04) ng/mL B-Natriuretic Peptide 466 H (Less than 100) pg/mL Specimen Rejected Hemolyzed - EKG Data EKG #1 EKG attestation: Yes I reviewed and interpreted this EKG. EKG results narrative: A. fib at a rate of 97. QRS duration is 88. QTC is 336. QTC is 390. No signs of acute ischemia. No significant change from previous EKG dated 2014.
[2018-02-25] MEDS ORDERED: Isovue-370 500 ML INFUS..BTL IV ONE (15:39)
[2018-02-25 15:59] LABS: Basophils # 0.1 K/mcL (0.0-0.2); Basophils % 0.6 %; Eosinophils # 0.1 K/mcL (0.0-0.6); Eosinophils % 0.4 %; Hematocrit 49.5 % (37.5-50.1); Hemoglobin 16.2 g/dL (12.9-16.9); Immature Granulocytes % 0.2 % (0-4); Lymphocytes # 8.1 K/mcL (0.6-4.6); Lymphocytes % 60.2 %; Mean Corpuscular HGB Conc 32.7 g/dL (31.6-35.5); Mean Corpuscular Volume 94.6 fL (83.0-100.0); Mean Platelet Volume 9.2 fL (9.4-12.4); Monocytes # 0.9 K/mcL (0.0-1.3); Monocytes % 6.7 %; Neutrophils # 4.3 K/mcL (1.6-8.9); Platelet Count 162 K/mcL (140-400); Red Blood Count 5.23 M/mcL (4.19-5.50); Red Cell Distribution Width 13.8 % (11.5-14.5); Segmented Neutrophils % 31.9 %
--- NOTE | 2018-02-25 15:59 | Emergency Department Note ---
Disposition Clinical Impression: Shortness of breath, Pneumonia Atrial fibrillation Qualifiers: Atrial fibrillation type: chronic Qualified Code(s): I48.2 - Chronic atrial fibrillation Congestive heart failure Qualifiers: Heart failure type: unspecified Heart failure chronicity: acute on chronic Qualified Code(s): I50.9 - Heart failure, unspecified Disposition: Admitted As Inpatient Referrals: Grady Bhagat DO [Primary Care Provider] - Forms: ED Satisfaction Letter General Adult HPI - General Chief complaint: ED Shortness of Breath/Dyspnea Stated complaint: JESSE Time Seen by Provider: 02/25/18 15:29 Source: patient Limitations: no limitations Nursing Notes Reviewed: Yes Vital Signs Reviewed: Yes - History of Present Illness Pain Scale: 0 - Related Data Home Medications Medication Instructions Recorded Confirmed Enalapril Maleate [Vasotec] 5 mg PO BID 04/14/17 02/25/18 Metoprolol XL (24 HR) Succ [Toprol 25 mg PO HS 05/13/17 02/25/18 Xl] Ascorbic Acid [Vitamin C] 500 mg PO DAILY 12/28/17 02/25/18 Aspirin Enteric Coated [Aspirin EC] 81 mg PO DAILY 12/28/17 02/25/18 Cholecalciferol (D-3) [Vitamin D] 2,000 unit PO DAILY 12/28/17 02/25/18 Saw [place] Xtr/Zinc Picolin [Saw 1 each PO DAILY 12/28/17 02/25/18 [place] Capsule] Nitroglycerin [Nitrostat] 0.4 mg SL Q5M PRN 02/25/18 02/25/18 Allergies Allergy/AdvReac Type Severity Reaction Status Date / Time bacitracin Allergy Hives Verified 02/25/18 19:49 [From Neosporin ([id number])] cephalexin [From Keflex] Allergy Hives Verified 02/25/18 19:49 Neomycin Allergy Hives Verified 02/25/18 19:49 [From Neosporin ([id number])] polymyxin B Allergy Hives Verified 02/25/18 19:49 [From Neosporin ([id number])] Past Medical History - Past Medical History Medical history: Reports: cancer, hyperlipidemia, hypertension, other Surgical history: Reports: appendectomy, herniorrhaphy Psychiatric history: Reports: no psych history - Social History Smoking Status: Former smoker Smokeless Tobacco Status: No Alcohol use: Reports: none Drug use: Reports: none Physical Exam - General Limitations: no limitations General appearance: alert, in no apparent distress Course Vital Signs Temperature 97.7 F 02/25/18 15:18 Pulse Rate 78 02/25/18 15:18 Respiratory Rate 22 02/25/18 15:18 Blood Pressure 145/102 02/25/18 15:18 O2 Sat by Pulse Oximetry 95 02/25/18 15:18 Temperature 97.7 F 02/25/18 15:18 Pulse Rate 77 02/25/18 18:26 Respiratory Rate 16 02/25/18 18:26 Blood Pressure 128/84 02/25/18 18:26 O2 Sat by Pulse Oximetry 96 02/25/18 18:26 Oxygen Delivery Oxygen Delivery Room Air Medical Decision Making - MDM Narrative Medical decision making narrative: This documentation is done with the assistance of Dragon dictation. Despite efforts made to ensure accuracy, there may be inaccuracies in prison guard supervisor or spelling and typographical errors. Patient presents today to urgent care yesterday with some discomfort in his chest not feeling good. They did a d-dimer and a chest x-ray and called him today and was concerned is currently d-dimer is elevated. He has several reasons have an elevated d-dimer besides PE. We will go ahead and scan his chest. Check lab work and reassess. He may need admission. He is in agreement with this plan. Chest X-Ray 02/25/18 15:22 IMPRESSION: 1. New moderate left and small right layering pleural effusions. 2. Left base consolidative opacity may reflect atelectasis or pneumonia if the patient has fever or leukocytosis. Radiographic follow-up to resolution is recommended. D/ / Edmar Rojas / Edmar Rojas Interpreting Provider: Edmar Rojas Chest CTA 02/25/18 15:39 IMPRESSION: 1. No CT evidence for acute pulmonary emboli. 2. Patchy airspace opacity in the right lower lobe is concerning for pneumonia. Additional confluent opacities in the posterior left lower lobe and lingula may reflect compressive atelectasis versus additional sites of pneumonia. Continued imaging follow-up is recommended. 3. Small right and moderate left pleural effusions. 4. Borderline right hilar lymph node is likely reactive. Attention on follow-up imaging is recommended. 5. 5 mm subpleural right lower lobe nodule. Please see follow-up guidelines below. 6. Nonspecific splenomegaly. 7. Nonspecific perisplenic and perihepatic free fluid is identified. RECOMMENDATIONS: Fleischner Society guidelines for follow-up and management of incidentally detected pulmonary nodules: Single Solid Nodule: Nodule size less than 6 mm In a low-risk patient, no routine follow-up. In a high-risk patient, optional CT at 12 months. Nodule size equals 6-8 mm In a low-risk patient, CT at 6-12 months, then consider CT at 18-24 months. In a high-risk patient, CT at 6-12 months, then CT at 18-24 months. Nodule size greater than 8 mm In a low-risk patient, consider CT at 3 months, PET/CT, or tissue sampling. In a high-risk patient, consider CT at 3 months, PET/CT, or tissue sampling. Multiple Solid Nodules: Nodule size less than 6 mm In a low-risk patient, no routine follow-up. In a high-risk patient, optional CT at 12 months. Nodule size equals 6-8 mm In a low-risk patient, CT at 3-6 months, then consider CT at 18-24 months. In a high-risk patient, CT at 3-6 months, then CT at 18-24 months. Nodule size greater than 8 mm In a low-risk patient, CT at 3-6 months, then consider CT at 18-24 months. In a high-risk patient, CT at 3-6 months, then CT at 18-24 months. - Low risk patients include individuals with minimal or absent history of smoking and other known risk factors. - High risk patients include individuals with a history or smoking or known risk factors. Radiology 2017 http://pubs.rsna.org/doi/full/10.1148/radiol.[email or web address] D/ / Serge Cruz / Serge Cruz Interpreting Provider: Serge Cruz 1920 hrs.: Start him on antibiotics. We will go ahead and admit to the hospital for follow-up of pneumonia and nodules. No PE. He is in agreement with plan. - Lab Data Result diagrams: 02/25/18 15:46 02/25/18 16:50 Lab Results 02/25/18 02/25/18 02/25/18 Range/Units 15:46 15:46 15:46 WBC 13.5 H (4.3-11.1) K/mcL RBC 5.23 (4.19-5.50) M/mcL Hgb 16.2 (12.9-16.9) g/dL Hct 49.5 (37.5-50.1) % MCV 94.6 (83.0-100.0) fL MCH 31.0 (28.0-33.3) pg MCHC 32.7 (31.6-35.5) g/dL RDW 13.8 (11.5-14.5) % Plt Count 162 (140-400) K/mcL MPV 9.2 L (9.4-12.4) fL Immature Gran % 0.2 (0-4) % Seg Neutrophils % 31.9 % Lymphocytes % 60.2 % Monocytes % 6.7 % Eosinophils % 0.4 % Basophils % 0.6 % Neutrophils # 4.3 (1.6-8.9) K/mcL Lymphocytes # 8.1 H (0.6-4.6) K/mcL Monocytes # 0.9 (0.0-1.3) K/mcL Eosinophils # 0.1 (0.0-0.6) K/mcL Basophils # 0.1 (0.0-0.2) K/mcL Platelet Estimate Normal (Normal) Sodium (136-145) mEq/L Potassium (3.5-5.1) mEq/L Chloride (98-107) mEq/L Carbon Dioxide (23-29) mEq/L BUN (8-23) mg/dL Creatinine (0.70-1.30) mg/dL Est GFR ( Amer) (> 60) Est GFR (Non-Af Amer) (> 60) BUN/Creatinine Ratio (6-26) Glucose (70-105) mg/dL Calculated Osmolality (280-300) Lactic Acid 1.7 (0.5-2.2) mmol/L Calcium (8.6-10.3) mg/dL Troponin I 0.19 H* (< 0.04) ng/mL B-Natriuretic Peptide (Less than 100) pg/mL Specimen Rejected 02/25/18 02/25/18 02/25/18 Range/Units 15:46 15:46 16:50 WBC (4.3-11.1) K/mcL RBC (4.19-5.50) M/mcL Hgb (12.9-16.9) g/dL Hct (37.5-50.1) % MCV (83.0-100.0) fL MCH (28.0-33.3) pg MCHC (31.6-35.5) g/dL RDW (11.5-14.5) % Plt Count (140-400) K/mcL MPV (9.4-12.4) fL Immature Gran % (0-4) % Seg Neutrophils % % Lymphocytes % % Monocytes % % Eosinophils % % Basophils % % Neutrophils # (1.6-8.9) K/mcL Lymphocytes # (0.6-4.6) K/mcL Monocytes # (0.0-1.3) K/mcL Eosinophils # (0.0-0.6) K/mcL Basophils # (0.0-0.2) K/mcL Platelet Estimate (Normal) Sodium 137 (136-145) mEq/L Potassium 4.2 (3.5-5.1) mEq/L Chloride 102 (98-107) mEq/L Carbon Dioxide 26 (23-29) mEq/L BUN 17 (8-23) mg/dL Creatinine 0.92 (0.70-1.30) mg/dL Est GFR ( Amer) > 60 (> 60) Est GFR (Non-Af Amer) > 60 (> 60) BUN/Creatinine Ratio 18 (6-26) Glucose 93 (70-105) mg/dL Calculated Osmolality 285 (280-300) Lactic Acid (0.5-2.2) mmol/L Calcium 9.4 (8.6-10.3) mg/dL Troponin I (< 0.04) ng/mL B-Natriuretic Peptide 466 H (Less than 100) pg/mL Specimen Rejected Hemolyzed Critical Care Time Critical Care Time: Yes Total Critical Care Time: 40 Attestation: Excluding any separately billable procedures Attestation Statement - Attestation Attestation: I examined this patient and my medical decision-making was reviewed with the Resident Physician. I agree with the documented findings, disposition and treatment plan as described except to the extent set forth below. Patient seen and evaluated on arrival with Dr. Vivar, I agree with her evaluation management plan, supervised care the patient's stay.
[2018-02-25 16:44] LABS: Platelet Estimate Normal (Normal)
[2018-02-25] MEDS ORDERED: Aspirin 81 MG TAB.CHEW PO STA (17:26)
[2018-02-25 17:38] LABS: BUN/Creatinine Ratio 18 (6-26); Blood Urea Nitrogen 17 mg/dL (8-23); Calcium 9.4 mg/dL (8.6-10.3); Carbon Dioxide 26 mEq/L (23-29); Chloride 102 mEq/L (98-107); Glucose 93 mg/dL (70-105); Osmolality,Calculated 285 (280-300); Potassium 4.2 mEq/L (3.5-5.1); Sodium 137 mEq/L (136-145); eGFR For African Americans > 60 (> 60); eGFR For Non-African Americans > 60 (> 60)
[2018-02-25] MEDS ORDERED: 0.9 % Sodium Chloride 1,000 ML IVC ONE (17:41)
[2018-02-25] MEDS ORDERED: Levofloxacin 750 MG/150 ML 750 MG/150 ML BAG IVPB ONE (18:36)
[2018-02-25] MEDS ORDERED: Naloxone 0.4 MG/ML INJ IVP PRN (22:03)
[2018-02-25] MEDS ORDERED: Acetaminophen 325 MG TABLET PO PRN (22:03)
[2018-02-25] MEDS ORDERED: Nitroglycerin 0.4 MG TAB.SUBL SL PRN (22:12)
--- NOTE | 2018-02-25 22:21 | Internal Med History&Physical ---
Date of Encounter: 02/25/18 Time of Encounter: 20:00 Internal Medicine - H&P: HPI Chief complaint: Shortness of breath Admitted From: Home Plans for Post Hospital Care: Home History of present illness: Mr. Marinelli is a 83 year old male presented to ER for shortness of breath for 4- 5 days, progressively worse. Past medical history is significant for systolic CHF with LVEF 35-40%, hypertension, A. fib on xarelto. Patient said he has progressive shortness of breath for 4-5 days. Denies fever , cough. Patient has increased leg swelling and belly swelling. He has increased body weight. In the emergency room, chest x-ray and CTA has been done , no PE, shows right lower lobe pneumonia. Patient was admitted for CHF exacerbation and pneumonia. I have discussed with patient regarding CODE STATUS. Patient clearly told me he does not want CPR but accept intubation if necessary, DNR CCA placed. Past Med Surg Social Fam HX - Past Medical History Medical history: cancer, hyperlipidemia, hypertension, other Psychiatric history: no psych history - Past Surgical History Surgical History: appendectomy, herniorrhaphy - Social History Smoking Status: Former smoker Smokeless Tobacco Status: No Alcohol use: none Drug use: none - Family History Mother Living Status: Hx Family Cancer: Yes Internal Medicine - H&P: Meds Enalapril Maleate [Vasotec] 5 mg PO BID 04/14/17 [History] Metoprolol XL (24 HR) Succ [Toprol Xl] 25 mg PO HS 05/13/17 [History] Ascorbic Acid [Vitamin C] 500 mg PO DAILY 12/28/17 [History] Aspirin Enteric Coated [Aspirin EC] 81 mg PO DAILY 12/28/17 [History] Cholecalciferol (D-3) [Vitamin D] 2,000 unit PO DAILY 12/28/17 [History] [place] Xtr/Zinc Picolin [Saw [place] Capsule] 1 each PO DAILY 12/28/17 [ History] Nitroglycerin [Nitrostat] 0.4 mg SL Q5M PRN 02/25/18 [History] 3 Allergy/AdvReac Type Severity Reaction Status Date / Time bacitracin Allergy Hives Verified 02/25/18 19:49 [From Neosporin ([id number])] cephalexin [From Keflex] Allergy Hives Verified 02/25/18 19:49 Neomycin Allergy Hives Verified 02/25/18 19:49 [From Neosporin ([id number])] polymyxin B Allergy Hives Verified 02/25/18 19:49 [From Neosporin ([id number])] All Systems PM: A 10-system review of systems was performed and is negative for pertinent findings except as documented above in the HPI. - Constitutional Vitals: Temp Pulse Resp BP Pulse Ox 97.5 F L 83 19 130/88 95 02/25/18 21:31 02/25/18 21:31 02/25/18 21:31 02/25/18 21:31 02/25/18 21:31 General appearance: Present: A&O X 3, no acute distress, answers questions appropriately - Head Head exam: Present: atraumatic, normocephalic - Eye Eye exam: Present: PERRL, conjuntiva pink, sclera anicteric Pupils: Present: PERRL - Neck Neck exam general surgery: Present: supple, trachea midline. Absent: lymphadenopathy - Respiratory Respiratory exam: Present: CTAB. Absent: accessory muscle use, rales, rhonchi, wheezes - Cardiovascular Cardiovascular exam: Present: RRR, +S1, +S2. Absent: diastolic murmur, gallop, rubs, systolic murmur - GI/Abdominal GI/Abdominal exam: Present: normal bowel sounds, soft, no peritoneal signs. Absent: distended, tenderness - Extremities Exam Extremities exam: Present: warm, radial pulses palpable and symmetrical. Absent : calf tenderness, cyanotic, pedal edema - Neurological Exam Neurological exam: Present: CN II-XII intact, oriented X3, no focal deficits. Absent: pronater drift, facial droop, speech deficit - Skin Skin exam: Present: dry, intact Internal Med - H&P Results - Labs CBC & Chem 7: 02/25/18 15:46 02/25/18 16:50 - EKG Data -: EKG Interpreted by Myself (Hayden pratt) - Assessment and plan (1) Atrial fibrillation Current Visit: Yes Status: Acute Assessment and plan: Heart rate is well controlled. On beta miguel. On xarelto for anticoagulation. Qualifiers: Atrial fibrillation type: chronic Qualified Code(s): I48.2 - Chronic atrial fibrillation (2) Pneumonia Current Visit: Yes Status: Acute Assessment and plan: CTA has shown right lower lobe pneumonia. Clinically patient has no cough or fever. Patient has leukocytosis, which is lymphocyte dominate. Patient has history of CLL and chronic leukocytosis. - We will treat patient with Levaquin IV as imaging study shows pneumonia and the patient has symptoms of shortness of breath - Continue supportive and symptomatic treatment Qualifiers: Pneumonia type: due to Pneumococcus Laterality: bilateral Lung location: unspecified part of lung Qualified Code(s): J13 - Pneumonia due to Streptococcus pneumoniae (3) Acute exacerbation of CHF (congestive heart failure) Current Visit: No Status: Acute Assessment and plan: Patient has history of systolic CHF with low LVEF to 35-40%. Patient has increased swelling and body weight. Mild elevated BNP. Consider CHF exacerbation. - Continuous cardiac monitoring - Strict I and O - Lasix 40 mg IV daily - Continue home medication beta miguel and PHYLICIA inhibitor - Cardiac and fluid restriction diet Qualifiers: Heart failure type: systolic Qualified Code(s): I50.23 - Acute on chronic systolic (congestive) heart failure (4) DVT prophylaxis Current Visit: No Status: Acute Assessment and plan: Patient is on xarelto (5) Elevated troponin Current Visit: No Status: Acute Assessment and plan: Patient denies chest pain. No significant EKG change. Consider demand ischemia. 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
--- NOTE | 2018-02-26 05:49 | Event Note ---
Date of Encounter: 02/26/18 Time of Encounter: 04:00 Report by RN pt has pink colored urine, consider mild hematuria. pt is on xarelto for A Fib. Will check UA, will cont xarelto balancing risk and benefit. Cont closely monitor pt. If hematuria persist or getting worse, will consider d/ c AC.
[2018-02-26 05:54] LABS: Bilirubin,Urine Negative (Negative); Blood,Urine Large (Negative); Clarity,Urine Clear (Clear); Color,Urine Yellow (Yellow); Glucose,Urine (UA) Normal (Normal); Ketones,Urine Negative (Negative); Leukocyte Esterase,Urine Negative (Negative); Nitrite,Urine Negative (Negative); PH,Urine 6.5 pH Units (5.0-8.0); Protein,Urine Negative (Neg-Trace); Specific Gravity,Urine 1.015 (1.010-1.025); Urobilinogen,Urine Normal (Normal)
[2018-02-26 06:10] LABS: Basophils # 0.1 K/mcL (0.0-0.2); Basophils % 0.4 %; Eosinophils # 0.1 K/mcL (0.0-0.6); Eosinophils % 0.6 %; Hematocrit 47.3 % (37.5-50.1); Hemoglobin 15.9 g/dL (12.9-16.9); Immature Granulocytes % 0.1 % (0-4); Lymphocytes # 7.5 K/mcL (0.6-4.6); Lymphocytes % 63.7 %; Mean Corpuscular HGB Conc 33.6 g/dL (31.6-35.5); Mean Corpuscular Hemoglobin 31.6 pg (28.0-33.3); Mean Platelet Volume 9.3 fL (9.4-12.4); Monocytes # 0.9 K/mcL (0.0-1.3); Monocytes % 7.4 %; Neutrophils # 3.3 K/mcL (1.6-8.9); Nucleated Red Blood Cells 0.2 /100 WBC (0); Platelet Count 127 K/mcL (140-400); Red Blood Count 5.03 M/mcL (4.19-5.50); Red Cell Distribution Width 13.9 % (11.5-14.5); Segmented Neutrophils % 27.8 %
[2018-02-26 06:31] LABS: Bacteria,Urine Few per hpf (None-Few); RBC,Urine 30-50 per hpf (0-3); WBC,Urine 0-3 per hpf (0-3)
[2018-02-26 06:32] LABS: Platelet Estimate Decreased (Normal); Reactive Lymphocytes Present (Not Present)
[2018-02-26 06:34] LABS: BUN/Creatinine Ratio 18 (6-26); Blood Urea Nitrogen 15 mg/dL (8-23); Calcium 9.2 mg/dL (8.6-10.3); Carbon Dioxide 24 mEq/L (23-29); Chloride 104 mEq/L (98-107); Glucose 109 mg/dL (70-105); Magnesium 1.9 mg/dL (1.6-2.6); Osmolality,Calculated 285 (280-300); Potassium 3.6 mEq/L (3.5-5.1); Sodium 137 mEq/L (136-145); eGFR For African Americans > 60 (> 60); eGFR For Non-African Americans > 60 (> 60)
[2018-02-26] MEDS: SAW PALMETTO XTR PO SCH (09:46)
[2018-02-26] MEDS: ZINC PICOLIN PO SCH (09:46)
[2018-02-26] MEDS: Lisinopril 20 MG TABLET PO SCH (09:47)
[2018-02-26] MEDS: Cholecalciferol (D-3) 1,000 UNIT TABLET PO SCH (09:47)
[2018-02-26] MEDS: Aspirin Enteric Coated 81 MG Tablet PO SCH (09:47)
[2018-02-26] MEDS: Furosemide 40 MG/4 ML VIAL IVP SCH ×2 (09:47)
[2018-02-26] MEDS: Ascorbic Acid 500 MG TABLET PO SCH (09:47)
[2018-02-26] MEDS: *HR* Rivaroxaban 10 MG TABLET PO SCH (17:07)
--- NOTE | 2018-02-26 19:10 | Internal Med Progress Note ---
Date of Encounter: 02/26/18 Time of Encounter: 11:00 - Assessment and plan (1) Pneumonia Current Visit: Yes Status: Acute Assessment and plan: CTA has shown right lower lobe pneumonia. Patient with improvement in shortness of breath and noted to have decreased leukocytosis on labs and has been afebrile Will continue Levaquin IV Qualifiers: Pneumonia type: due to Pneumococcus Laterality: bilateral Lung location: unspecified part of lung Qualified Code(s): J13 - Pneumonia due to Streptococcus pneumoniae (2) Acute exacerbation of CHF (congestive heart failure) Current Visit: No Status: Acute Assessment and plan: Patient has history of systolic CHF with low LVEF to 35-40%. Patient has increased swelling and body weight. Mild elevated BNP. Will continue IV diuresis with strict I's and O's in addition to continue home medication of beta miguel and PHYLICIA inhibitor Qualifiers: Heart failure type: systolic Qualified Code(s): I50.23 - Acute on chronic systolic (congestive) heart failure (3) Elevated troponin Current Visit: No Status: Acute Assessment and plan: Suspect secondary to demand ischemia (4) Atrial fibrillation Current Visit: Yes Status: Acute Assessment and plan: Heart rate is well controlled. Continue beta miguel and xarelto for anticoagulation. Qualifiers: Atrial fibrillation type: chronic Qualified Code(s): I48.2 - Chronic atrial fibrillation (5) CLL (chronic lymphocytic leukemia) Current Visit: No Status: Chronic Assessment and plan: Continue follow-up as outpatient (6) DVT prophylaxis Current Visit: No Status: Acute Assessment and plan: Patient is on xarelto - Time Spent With Patient Total time spent is greater than 50% in coordination of care (as documented) at patient's floor/unit and/or counseling patient: - Subjective Interval history: Patient reports of improvement in shortness of breath after starting IV antibiotic for pneumonia and IV diuresis for heart failure - Constitutional Vitals: Temp Pulse Resp BP Pulse Ox 97.6 F 98 18 130/90 94 02/26/18 16:06 02/26/18 16:06 02/26/18 16:06 02/26/18 16:06 02/26/18 16:06 General appearance: Present: A&O X 3, no acute distress, answers questions appropriately - Respiratory Respiratory exam: Present: CTAB. Absent: accessory muscle use, rales, rhonchi, wheezes - Cardiovascular Cardiovascular exam: Present: RRR, +S1, +S2. Absent: diastolic murmur, gallop, rubs, systolic murmur Internal Medicine: Result - Labs CBC & Chem 7: 02/26/18 05:58 02/26/18 05:58 Labs: Short CBC 02/26/18 Range/Units 05:58 WBC 11.7 H (4.3-11.1) K/mcL Hgb 15.9 (12.9-16.9) g/dL Hct 47.3 (37.5-50.1) % Plt Count 127 L (140-400) K/mcL Neutrophils # 3.3 (1.6-8.9) K/mcL BMP 02/26/18 05:58 Sodium 137 Potassium 3.6 Chloride 104 Carbon Dioxide 24 BUN 15 Creatinine 0.83 Glucose 109 H Calcium 9.2 Cardiac Enzymes 02/25/18 02/26/18 Range/Units 22:39 05:58 Troponin I 0.16 H* 0.18 H* (< 0.04) ng/mL Urine 02/26/18 Range/Units 05:42 Urine Color Yellow (Yellow) Urine Clarity Clear (Clear) Urine pH 6.5 (5.0-8.0) pH Units Ur Specific [place] 1.015 (1.010-1.025) Urine Protein Negative (Neg-Trace) mg/dL Urine Glucose (UA) Normal (Normal) mg/dL Consult Discharge Plan - Plan Referrals: Grady Bhagat DO [Primary Care Provider] -
[2018-02-26] MEDS: Metoprolol XL (24 HR) Succ 25 MG TAB.ER.24H PO SCH (20:37)
[2018-02-26] MEDS: Levofloxacin 750 MG/150 ML 750 MG/150 ML BAG IVPB SCH (20:37)
[2018-02-27] MEDS: Lisinopril 20 MG TABLET PO SCH (09:24)
[2018-02-27] MEDS: Ascorbic Acid 500 MG TABLET PO SCH (09:24)
[2018-02-27] MEDS: Aspirin Enteric Coated 81 MG Tablet PO SCH (09:24)
[2018-02-27] MEDS: SAW PALMETTO XTR PO SCH (09:25)
[2018-02-27] MEDS: Cholecalciferol (D-3) 1,000 UNIT TABLET PO SCH (09:25)
[2018-02-27] MEDS: Furosemide 40 MG/4 ML VIAL IVP SCH (09:25)
[2018-02-27] MEDS: ZINC PICOLIN PO SCH (09:25)
[2018-02-27 11:07] LABS: Basophils % 0.3 %; Eosinophils % 0.2 %; Hematocrit 50.2 % (37.5-50.1); Hemoglobin 16.8 g/dL (12.9-16.9); Immature Granulocytes % 0.2 % (0-4); Lymphocytes # 6.8 K/mcL (0.6-4.6); Lymphocytes % 56.3 %; Mean Corpuscular HGB Conc 33.5 g/dL (31.6-35.5); Mean Corpuscular Hemoglobin 31.4 pg (28.0-33.3); Mean Corpuscular Volume 93.8 fL (83.0-100.0); Mean Platelet Volume 9.7 fL (9.4-12.4); Monocytes # 0.7 K/mcL (0.0-1.3); Monocytes % 6.1 %; Neutrophils # 4.5 K/mcL (1.6-8.9); Nucleated Red Blood Cells 0.2 /100 WBC (0); Platelet Count 130 K/mcL (140-400); Red Blood Count 5.35 M/mcL (4.19-5.50); Red Cell Distribution Width 14.1 % (11.5-14.5); Segmented Neutrophils % 36.9 %
[2018-02-27 11:21] LABS: BUN/Creatinine Ratio 13 (6-26); Blood Urea Nitrogen 13 mg/dL (8-23); Calcium 9.7 mg/dL (8.6-10.3); Carbon Dioxide 26 mEq/L (23-29); Chloride 101 mEq/L (98-107); Glucose 104 mg/dL (70-105); Osmolality,Calculated 282 (280-300); Potassium 3.8 mEq/L (3.5-5.1); Sodium 136 mEq/L (136-145); eGFR For African Americans > 60 (> 60); eGFR For Non-African Americans > 60 (> 60)
[2018-02-27] MEDS: Cetirizine HCl 5 MG/5 ML UDC PO SCH (13:17)
[2018-02-27] MEDS: *HR* Rivaroxaban 10 MG TABLET PO SCH (16:55)
--- NOTE | 2018-02-27 17:32 | Internal Med Progress Note ---
Date of Encounter: 02/27/18 Time of Encounter: 11:00 - Assessment and plan (1) Pneumonia Current Visit: Yes Status: Acute Assessment and plan: CTA has shown right lower lobe pneumonia. Patient with improving leukocytosis and afebrile Will continue continue current management with IV Levaquin Qualifiers: Pneumonia type: due to Pneumococcus Laterality: bilateral Lung location: unspecified part of lung Qualified Code(s): J13 - Pneumonia due to Streptococcus pneumoniae (2) Acute exacerbation of CHF (congestive heart failure) Current Visit: No Status: Acute Assessment and plan: Patient has history of systolic CHF with low LVEF to 35-40%. Patient now with decreased lower extremity edema Will continue an additional day of IV diuresis Qualifiers: Heart failure type: systolic Qualified Code(s): I50.23 - Acute on chronic systolic (congestive) heart failure (3) Elevated troponin Current Visit: No Status: Acute Assessment and plan: Suspect secondary to demand ischemia (4) Atrial fibrillation Current Visit: Yes Status: Acute Assessment and plan: Heart rate is well controlled. Continue beta miguel and xarelto for anticoagulation. Qualifiers: Atrial fibrillation type: chronic Qualified Code(s): I48.2 - Chronic atrial fibrillation (5) CLL (chronic lymphocytic leukemia) Current Visit: No Status: Chronic Assessment and plan: Continue follow-up as outpatient (6) DVT prophylaxis Current Visit: No Status: Acute Assessment and plan: Patient is on xarelto - Time Spent With Patient Total time spent is greater than 50% in coordination of care (as documented) at patient's floor/unit and/or counseling patient: - Subjective Interval history: Patient continues to improve with IV diuresis for acute on chronic systolic heart failure in addition to treatment of community acquired pneumonia with IV Levaquin - Constitutional Vitals: Temp Pulse Resp BP Pulse Ox 97.9 F 81 17 114/76 93 02/27/18 15:40 02/27/18 15:40 02/27/18 15:40 02/27/18 15:40 02/27/18 15:40 General appearance: Present: A&O X 3, no acute distress, answers questions appropriately - Respiratory Respiratory exam: Present: CTAB. Absent: accessory muscle use, rales, rhonchi, wheezes - Cardiovascular Cardiovascular exam: Present: RRR, +S1, +S2. Absent: diastolic murmur, gallop, rubs, systolic murmur - Expanded Lower Extremities Exam Lower Leg exam: Present: swelling (Trace bilateral lower extremity edema) Internal Medicine: Result - Labs CBC & Chem 7: 02/27/18 10:40 02/27/18 10:40 Labs: Short CBC 02/27/18 Range/Units 10:40 WBC 12.1 H (4.3-11.1) K/mcL Hgb 16.8 (12.9-16.9) g/dL Hct 50.2 H (37.5-50.1) % Plt Count 130 L (140-400) K/mcL Neutrophils # 4.5 (1.6-8.9) K/mcL BMP 02/27/18 10:40 Sodium 136 Potassium 3.8 Chloride 101 Carbon Dioxide 26 BUN 13 Creatinine 0.99 Glucose 104 Calcium 9.7 Consult Discharge Plan - Plan Referrals: Grady Bhagat DO [Primary Care Provider] -
[2018-02-27] MEDS: Metoprolol XL (24 HR) Succ 25 MG TAB.ER.24H PO SCH (22:37)
[2018-02-27] MEDS: Levofloxacin 750 MG/150 ML 750 MG/150 ML BAG IVPB SCH (22:37)
[2018-02-28] MEDS: Furosemide 40 MG/4 ML VIAL IVP SCH (08:39)
[2018-02-28] MEDS: SAW PALMETTO XTR PO SCH (08:40)
[2018-02-28] MEDS: Lisinopril 20 MG TABLET PO SCH (08:40)
[2018-02-28] MEDS: ZINC PICOLIN PO SCH (08:40)
[2018-02-28] MEDS: Cholecalciferol (D-3) 1,000 UNIT TABLET PO SCH (08:40)
[2018-02-28] MEDS: Aspirin Enteric Coated 81 MG Tablet PO SCH (08:40)
[2018-02-28] MEDS: Ascorbic Acid 500 MG TABLET PO SCH (08:40)
[2018-02-28] MEDS: Cetirizine HCl 5 MG/5 ML UDC PO SCH (08:40)
[2018-02-28 10:08] LABS: Basophils # 0.1 K/mcL (0.0-0.2); Basophils % 0.4 %; Eosinophils # 0.1 K/mcL (0.0-0.6); Eosinophils % 0.6 %; Hematocrit 51.9 % (37.5-50.1); Hemoglobin 17.2 g/dL (12.9-16.9); Immature Granulocytes % 0.3 % (0-4); Lymphocytes % 58.1 %; Mean Corpuscular HGB Conc 33.1 g/dL (31.6-35.5); Mean Corpuscular Hemoglobin 31.3 pg (28.0-33.3); Mean Corpuscular Volume 94.5 fL (83.0-100.0); Mean Platelet Volume 9.9 fL (9.4-12.4); Monocytes # 0.7 K/mcL (0.0-1.3); Monocytes % 5.7 %; Neutrophils # 4.2 K/mcL (1.6-8.9); Platelet Count 139 K/mcL (140-400); Red Blood Count 5.49 M/mcL (4.19-5.50); Segmented Neutrophils % 34.9 %
[2018-02-28 10:27] LABS: BUN/Creatinine Ratio 18 (6-26); Blood Urea Nitrogen 18 mg/dL (8-23); Calcium 9.5 mg/dL (8.6-10.3); Carbon Dioxide 26 mEq/L (23-29); Chloride 97 mEq/L (98-107); Glucose 138 mg/dL (70-105); Osmolality,Calculated 280 (280-300); Potassium 3.3 mEq/L (3.5-5.1); Sodium 133 mEq/L (136-145); eGFR For African Americans > 60 (> 60); eGFR For Non-African Americans > 60 (> 60)
[2018-02-28 12:12] VITALS: BP 127/79
--- NOTE | 2018-02-28 13:28 | Discharge Summary ---
- NOTES TO OUTPATIENT PROVIDER Notes to Outpatient Provider: Patient will also need to follow-up with a chest CT in 12 months for an incidental finding of a 5 mm nodule in the subpleural right lower lobe of lung. Date of Encounter: 02/28/18 Time of Encounter: 11:00 - Discharge Diagnosis (1) Pneumonia Priority: Primary Status: Acute Qualifiers: Pneumonia type: due to Pneumococcus Laterality: bilateral Lung location: unspecified part of lung Qualified Code(s): J13 - Pneumonia due to Streptococcus pneumoniae (2) Acute exacerbation of CHF (congestive heart failure) Priority: Primary Status: Acute Qualifiers: Heart failure type: systolic Qualified Code(s): I50.23 - Acute on chronic systolic (congestive) heart failure (3) Elevated troponin Priority: Secondary Status: Acute (4) Atrial fibrillation Priority: Secondary Status: Acute Qualifiers: Atrial fibrillation type: chronic Qualified Code(s): I48.2 - Chronic atrial fibrillation (5) CLL (chronic lymphocytic leukemia) Priority: Secondary Status: Chronic Hospital course: Patient is an 83-year-old male with past medical history significant for CLL, atrial fibrillation, systolic heart failure, hypertension and hyperlipidemia who presented to the ER on 02/25/18 due to shortness of breath. Patient reported of a 4-5 history of progressively worsening shortness of breath. He also reports of increased lower extremity and abdomen swelling in addition to increased body weight. Patient does admit to not taking his Lasix as prescribed. In the ER, imaging of the chest showed patchy airspace opacities in the right lower lobe concerning for pneumonia with small amount of right and moderate left pleural effusions in addition to a 5 mm subpleural right lower lobe nodule. Patient was admitted to the medical surgical floor for acute on chronic systolic heart failure in addition to community acquired pneumonia. During patients hospital stay his shortness of breath resolved with IV diuresis for heart failure and treatment with IV Levaquin for pneumonia. He was also noted to have elevated cardiac biomarkers which was secondary to suspected demand ischemia. Patient was educated about taking all medications as directed and will be discharged to continue Lasix 20 mg daily. Patient will also need to follow-up with a chest CT in 12 months for an incidental finding of a 5 mm nodule in the subpleural right lower lobe. - Time Spent with Patient Total time spent providing and/or coordinating discharge services: Less than 30 minutes - Discharge Medications Prescriptions: Levofloxacin [Levaquin] 500 mg PO DAILY 4 Days #4 tablet Home Medications: Enalapril Maleate [Vasotec] 5 mg PO BID 04/14/17 [History] Metoprolol XL (24 HR) Succ [Toprol Xl] 25 mg PO HS 05/13/17 [History] Ascorbic Acid [Vitamin C] 500 mg PO DAILY 12/28/17 [History] Aspirin Enteric Coated [Aspirin EC] 81 mg PO DAILY 12/28/17 [History] Cholecalciferol (D-3) [Vitamin D] 2,000 unit PO DAILY 12/28/17 [History] Saw [place] Xtr/Zinc Picolin [Saw [place] Capsule] 1 each PO DAILY 12/28/17 [ History] Nitroglycerin [Nitrostat] 0.4 mg SL Q5M PRN 02/25/18 [History] Furosemide [Lasix] 20 mg PO DAILY 02/26/18 [History] Cetirizine HCl [Zyrtec] 2.5 mg PO DAILY udc 02/28/18 [Rx] Levofloxacin [Levaquin] 500 mg PO DAILY 4 Days #4 tablet 02/28/18 [Rx] Rivaroxaban [Xarelto] 20 mg PO 1700 tablet 02/28/18 [Rx] Allergies/Adverse Reactions: 3 Allergy/AdvReac Type Severity Reaction Status Date / Time bacitracin Allergy Hives Verified 02/25/18 19:49 [From Neosporin ([id number])] cephalexin [From Keflex] Allergy Hives Verified 02/25/18 19:49 Neomycin Allergy Hives Verified 02/25/18 19:49 [From Neosporin ([id number])] polymyxin B Allergy Hives Verified 02/25/18 19:49 [From Neosporin ([id number])] Date of admission: 02/25/18 22:03 Primary care physician: Grady Bhagat, - Constitutional Vitals: Temp Pulse Resp BP Pulse Ox 97.4 F L 81 16 127/79 94 02/28/18 12:11 02/28/18 12:11 02/28/18 12:11 02/28/18 12:11 02/28/18 12:11 General appearance: Present: A&O X 3, no acute distress, answers questions appropriately - Respiratory Respiratory exam: Present: CTAB. Absent: accessory muscle use, rales, rhonchi, wheezes - Cardiovascular Cardiovascular exam: Present: RRR, +S1, +S2. Absent: diastolic murmur, gallop, rubs, systolic murmur - Patient Status Disposition: Home, Self-Care - Discharge Instructions Instructions: Pneumonia (DC) Follow Up With: Grady Bhagat, [Primary Care Provider] -
--- NOTE | 2018-02-28 16:39 | Electrocardiograph Report ---
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
== END 2018-02-28 14:50 | disposition home or self-care (01) | DRG 291 ==
LOC: 2SOUTHHOLD 15:18 → EMEROO 15:18 → 2SOUTHHOLD 21:03 → SUATTDRO 22:03 → 3NENU 02-26 19:36
PROVIDERS: ADMIT Internal Medicine Cardiovascular Disease; ATTEND Hospitalist

== ENCOUNTER 2019-09-18 10:56 | Observation (INO) ==
[2019-09-18 12:57] LABS: Basophils % 0.4 %; Eosinophils % 0.2 %; Mean Corpuscular Volume 89.3 fL (83.0-100.0)
[2019-09-18 12:59] LABS: Hematocrit 48.6 % (37.5-50.1); Hemoglobin 16.3 g/dL (12.9-16.9); Immature Granulocytes % 0.3 % (0-4); Immature Platelets 6.8 % (1.1-6.1); Lymphocytes # 7.3 K/mcL (0.6-4.6); Lymphocytes % 71.9 %; Mean Corpuscular HGB Conc 33.5 g/dL (31.6-35.5); Monocytes # 0.9 K/mcL (0.0-1.3); Monocytes % 8.4 %; Neutrophils # 1.9 K/mcL (1.6-8.9); Red Blood Count 5.44 M/mcL (4.19-5.50); Red Cell Distribution Width 13.4 % (11.5-14.5); Segmented Neutrophils % 18.8 %; White Blood Count 10.2 K/mcL (4.3-11.1)
[2019-09-18] MEDS ORDERED: Furosemide 40 MG/4 ML VIAL IVP ONE (12:59)
[2019-09-18 13:24] LABS: Platelet Count 81 K/mcL (140-400); Platelet Estimate Decreased (Normal)
[2019-09-18 13:25] LABS: Reactive Lymphocytes Present (Not Present)
[2019-09-18 13:36] LABS: Alanine Aminotransferase 17 Units/L (7-52); Albumin 4.3 g/dL (3.5-5.7); Albumin/Globulin Ratio 1.3 (1.1-2.2); Alkaline Phosphatase 71 Units/L (34-104); Aspartate Amino Transferase 36 Units/L (13-39); BUN/Creatinine Ratio 19 (6-26); Bilirubin,Total 1.8 mg/dL (0.3-1.0); Blood Urea Nitrogen 18 mg/dL (8-23); Calcium 9.5 mg/dL (8.6-10.3); Carbon Dioxide 20 mEq/L (23-29); Chloride 98 mEq/L (98-107); Globulin 3.2 g/dL (2.4-3.5); Glucose 99 mg/dL (70-105); Osmolality,Calculated 278 (280-300); Potassium 3.8 mEq/L (3.5-5.1); Sodium 133 mEq/L (136-145); Total Protein 7.5 g/dL (6.4-8.9); Troponin I 0.06 ng/mL (< 0.04); eGFR For African Americans > 60 (> 60); eGFR For Non-African Americans > 60 (> 60)
[2019-09-18] MEDS ORDERED: Aspirin 325 MG TABLET PO ONE (13:41)
[2019-09-18] MEDS ORDERED: Naloxone 0.4 MG/ML INJ IVP PRN (14:59)
[2019-09-18 19:04] LABS: Adenovirus Not Detected (Not Detect); Bordetella Pertussis Not Detected (Not Detect); Chlamydophila pneumoniae Not Detected (Not Detect); Coronavirus 229E Not Detected (Not Detect); Coronavirus HKU1 Not Detected (Not Detect); Coronavirus NL63 Not Detected (Not Detect); Coronavirus OC43 Not Detected (Not Detect); Human Metapneumovirus Not Detected (Not Detect); Human Rhinovirus/Enterovirus Not Detected (Not Detect); Influenza A Subtype 2009 H1 Not Detected (Not Detect); Influenza A Untypeable Not Detected (Not Detect); Influenza B Not Detected (Not Detect); Mycoplasma pneumoniae Not Detected (Not Detect); Parainfluenza Virus 1 Not Detected (Not Detect); Parainfluenza Virus 2 Not Detected (Not Detect); Parainfluenza Virus 3 Not Detected (Not Detect); Parainfluenza Virus 4 Not Detected (Not Detect); Respiratory Syncytial Virus Not Detected (Not Detect)
[2019-09-18] MEDS ORDERED: Metoprolol XL (24 HR) Succ 25 MG TAB.ER.24H PO SCH (21:00)
[2019-09-18] MEDS: Sacubitril/Valsartan 49/51 MG 1 TABLET PO SCH (21:43)
[2019-09-18] MEDS: Furosemide 40 MG/4 ML VIAL IVP SCH (21:43)
[2019-09-19 06:59] LABS: Basophils % 0.4 %; Eosinophils % 0.2 %; Hematocrit 49.7 % (37.5-50.1); Hemoglobin 16.6 g/dL (12.9-16.9); Immature Granulocytes % 0.2 % (0-4); Lymphocytes # 7.5 K/mcL (0.6-4.6); Lymphocytes % 73.1 %; Mean Corpuscular HGB Conc 33.4 g/dL (31.6-35.5); Mean Corpuscular Volume 89.9 fL (83.0-100.0); Mean Platelet Volume 9.9 fL (9.4-12.4); Monocytes # 0.8 K/mcL (0.0-1.3); Monocytes % 7.8 %; Neutrophils # 1.9 K/mcL (1.6-8.9); Nucleated Red Blood Cells 0.2 /100 WBC (0); Platelet Count 105 K/mcL (140-400); Red Blood Count 5.53 M/mcL (4.19-5.50); Red Cell Distribution Width 13.2 % (11.5-14.5); Segmented Neutrophils % 18.3 %; White Blood Count 10.3 K/mcL (4.3-11.1)
[2019-09-19 07:26] LABS: Troponin I 0.06 ng/mL (< 0.04)
[2019-09-19 07:27] LABS: BUN/Creatinine Ratio 20 (6-26); Blood Urea Nitrogen 18 mg/dL (8-23); Calcium 9.3 mg/dL (8.6-10.3); Carbon Dioxide 27 mEq/L (23-29); Chloride 97 mEq/L (98-107); Glucose 105 mg/dL (70-105); Osmolality,Calculated 284 (280-300); Potassium 3.3 mEq/L (3.5-5.1); Sodium 136 mEq/L (136-145); eGFR For African Americans > 60 (> 60); eGFR For Non-African Americans > 60 (> 60)
[2019-09-19 07:29] LABS: Platelet Estimate Decreased (Normal); Reactive Lymphocytes Present (Not Present)
[2019-09-19] MEDS: Furosemide 40 MG/4 ML VIAL IVP SCH (08:27)
[2019-09-19] MEDS: Sacubitril/Valsartan 49/51 MG 1 TABLET PO SCH (08:27)
[2019-09-19] MEDS ORDERED: Aspirin Enteric Coated 81 MG Tablet PO SCH (09:00)
[2019-09-19] MEDS ORDERED: Cholecalciferol (D-3) 1,000 UNIT (25MCG) TABLET PO SCH (09:00)
[2019-09-19] MEDS ORDERED: Ascorbic Acid 500 MG TABLET PO SCH (09:00)
[2019-09-19 11:34] VITALS: BP 110/70
== END 2019-09-19 13:38 | disposition home or self-care (01) ==
LOC: 3BNU 10:56 → EMEROOARM 10:56 → SUATTDRO 14:13 → 3BNU 14:58
PROVIDERS: ADMIT Internal Medicine; ATTEND Internal Medicine

== ENCOUNTER 2021-08-19 15:05 | Inpatient (IN) ==
[2021-08-19] MEDS ORDERED: Furosemide 80 MG in 0.9 % Sodium Chloride 50 ML IV ONE (15:27)
[2021-08-19 16:46] LABS: Bilirubin,Urine Negative (Negative); Blood,Urine Large (Negative); Clarity,Urine Turbid (Clear); Color,Urine Yellow (Yellow); Glucose,Urine (UA) Normal (Normal); Hyaline Casts,Urine Few per lpf (None Seen); Ketones,Urine Negative (Negative); Leukocyte Esterase,Urine Negative (Negative); Mucus,Urine Few per lpf (None-Few); Nitrite,Urine Negative (Negative); PH,Urine 5.5 pH Units (5.0-8.0); Protein,Urine 50 mg/dL (Neg-Trace); RBC,Urine TNTC per hpf (0-3); Specific Gravity,Urine 1.024 (1.010-1.025); Squamous Epithelial Cell,Urine Few per hpf (None-Few); Urobilinogen,Urine Normal (Normal); WBC,Urine 30-50 per hpf (0-3)
[2021-08-19 17:36] LABS: Basophils % 0.4 %; Eosinophils % 0.2 %; Hematocrit 52.3 % (37.5-50.1); Immature Granulocytes % 0.2 % (0-4); Immature Platelets 3.1 % (1.1-6.1); Lymphocytes # 6.1 K/mcL (0.6-4.6); Lymphocytes % 72.1 %; Mean Corpuscular HGB Conc 32.5 g/dL (31.6-35.5); Mean Corpuscular Hemoglobin 29.1 pg (28.0-33.3); Mean Corpuscular Volume 89.4 fL (83.0-100.0); Mean Platelet Volume 9.4 fL (9.4-12.4); Monocytes # 0.7 K/mcL (0.0-1.3); Monocytes % 7.8 %; Neutrophils # 1.6 K/mcL (1.6-8.9); Platelet Count 118 K/mcL (140-400); Red Blood Count 5.85 M/mcL (4.19-5.50); Red Cell Distribution Width 16.6 % (11.5-14.5); Segmented Neutrophils % 19.3 %; White Blood Count 8.5 K/mcL (4.3-11.1)
[2021-08-19 17:51] LABS: Platelet Estimate Decreased (Normal); Reactive Lymphocytes Present (Not Present)
[2021-08-19 18:03] LABS: Alanine Aminotransferase 10 Units/L (7-52); Albumin 4.5 g/dL (3.5-5.7); Albumin/Globulin Ratio 1.3 (1.1-2.2); Alkaline Phosphatase 75 Units/L (34-104); Aspartate Amino Transferase 27 Units/L (13-39); BUN/Creatinine Ratio 23 (6-26); Bilirubin,Total 2.2 mg/dL (0.3-1.0); Blood Urea Nitrogen 24 mg/dL (8-23); Calcium 9.8 mg/dL (8.6-10.3); Carbon Dioxide 27 mEq/L (23-29); Chloride 95 mEq/L (98-107); Globulin 3.4 g/dL (2.4-3.5); Glucose 92 mg/dL (70-105); Osmolality,Calculated 276 (280-300); Potassium 4.6 mEq/L (3.5-5.1); Sodium 131 mEq/L (136-145); Total Protein 7.9 g/dL (6.4-8.9); Troponin I 0.16 ng/mL (< 0.04); eGFR For African Americans > 60 (> 60); eGFR For Non-African Americans > 60 (> 60)
[2021-08-19] MEDS ORDERED: Naloxone 0.4 MG/ML INJ IVP PRN (20:47)
[2021-08-19] MEDS ORDERED: Ondansetron ODT 4 MG TAB.RAPDIS SL PRN (20:47)
[2021-08-19] MEDS ORDERED: Melatonin 3 MG TABLET PO PRN (20:47)
[2021-08-19] MEDS ORDERED: Perflutren Lipid Microsphere 1.3 ML in 0.9 % Sodium Chloride 8.7 ML IVP PRN (20:55)
[2021-08-19] MEDS ORDERED: Nitroglycerin 0.4 MG TAB.SUBL SL PRN (20:57)
[2021-08-19] MEDS: Sacubitril/Valsartan 49/51 MG 1 TABLET PO SCH (21:31)
[2021-08-19 21:38] LABS: VBG Ionized Calcium 1.03 mmol/L (1.15-1.35)
[2021-08-19] MEDS ORDERED: Isovue-370 500 ML BOTTLE IVP ONE (21:45)
[2021-08-19 21:51] LABS: INR 1.2; Prothrombin Time 13.5 Seconds (9.4-12.1)
[2021-08-19 22:04] LABS: Activated Partial Thrombo Time 34.5 Seconds (26.0-36.0)
[2021-08-19 22:12] LABS: Thyroid Stimulating Hormone 9.427 mcIU/mL (0.340-5.600)
[2021-08-19] MEDS: Calcium Gluconate 1gm/50mL 1 GM/50 ML BAG IVPB SCH ×2 (22:38→23:35)
[2021-08-20] MEDS: *HR* Heparin 5,000 UNIT/ML VIAL SQ SCH ×3 (04:52→21:31)
[2021-08-20 05:47] LABS: Hematocrit 44.8 % (37.5-50.1); Immature Platelets 2.9 % (1.1-6.1); Mean Corpuscular HGB Conc 33.5 g/dL (31.6-35.5); Mean Corpuscular Hemoglobin 29.6 pg (28.0-33.3); Mean Corpuscular Volume 88.4 fL (83.0-100.0); Mean Platelet Volume 10.5 fL (9.4-12.4); Red Blood Count 5.07 M/mcL (4.19-5.50); White Blood Count 8.2 K/mcL (4.3-11.1)
[2021-08-20 06:01] LABS: BUN/Creatinine Ratio 23 (6-26); Blood Urea Nitrogen 21 mg/dL (8-23); Calcium 9.4 mg/dL (8.6-10.3); Carbon Dioxide 24 mEq/L (23-29); Chloride 99 mEq/L (98-107); Glucose 91 mg/dL (70-105); Osmolality,Calculated 277 (280-300); Potassium 4.1 mEq/L (3.5-5.1); Sodium 132 mEq/L (136-145); eGFR For African Americans > 60 (> 60); eGFR For Non-African Americans > 60 (> 60)
[2021-08-20] MEDS ORDERED: Furosemide 40 MG/4 ML VIAL IVP SCH (07:00)
[2021-08-20] MEDS: Aspirin Enteric Coated 81 MG Tablet PO SCH (09:12)
[2021-08-20] MEDS: Sacubitril/Valsartan 49/51 MG 1 TABLET PO SCH ×2 (09:12→21:29)
[2021-08-20] MEDS: Furosemide 20 MG/2 ML VIAL IVP SCH ×2 (09:12→21:29)
[2021-08-20] MEDS: Metoprolol XL (24 HR) Succ 50 MG TAB.ER.24H PO SCH (21:29)
[2021-08-21] MEDS: *HR* Heparin 5,000 UNIT/ML VIAL SQ SCH ×3 (05:48→20:05)
[2021-08-21] MEDS: Aspirin Enteric Coated 81 MG Tablet PO SCH (07:29)
[2021-08-21 08:28] LABS: Eosinophils % 0.1 %; Immature Granulocytes % 0.1 % (0-4); Mean Corpuscular HGB Conc 32.6 g/dL (31.6-35.5)
[2021-08-21 08:30] LABS: Basophils % 0.1 %; Hematocrit 43.8 % (37.5-50.1); Hemoglobin 14.3 g/dL (12.9-16.9); Immature Platelets 3.7 % (1.1-6.1); Lymphocytes % 54.1 %; Mean Corpuscular Volume 88.8 fL (83.0-100.0); Mean Platelet Volume 10.5 fL (9.4-12.4); Monocytes # 0.7 K/mcL (0.0-1.3); Neutrophils # 2.5 K/mcL (1.6-8.9); Red Blood Count 4.93 M/mcL (4.19-5.50); Red Cell Distribution Width 16.2 % (11.5-14.5); Segmented Neutrophils % 35.6 %; White Blood Count 6.9 K/mcL (4.3-11.1)
[2021-08-21 08:36] LABS: Lymphocytes # 3.7 K/mcL (0.6-4.6); Platelet Count 87 K/mcL (140-400)
[2021-08-21 08:50] LABS: BUN/Creatinine Ratio 24 (6-26); Blood Urea Nitrogen 20 mg/dL (8-23); Carbon Dioxide 24 mEq/L (23-29); Chloride 99 mEq/L (98-107); Glucose 91 mg/dL (70-105); Osmolality,Calculated 274 (280-300); Potassium 4.1 mEq/L (3.5-5.1); Sodium 131 mEq/L (136-145); eGFR For African Americans > 60 (> 60); eGFR For Non-African Americans > 60 (> 60)
[2021-08-21] MEDS: Furosemide 20 MG/2 ML VIAL IVP SCH (08:51)
[2021-08-21] MEDS: Sacubitril/Valsartan 49/51 MG 1 TABLET PO SCH ×2 (08:51→20:04)
[2021-08-21] MEDS ORDERED: Furosemide 20 MG TABLET PO SCH (17:00)
[2021-08-21] MEDS: Metoprolol XL (24 HR) Succ 50 MG TAB.ER.24H PO SCH (20:04)
[2021-08-21] MEDS: Furosemide 40 MG/4 ML VIAL IVP SCH (20:04)
[2021-08-22] MEDS: *HR* Heparin 5,000 UNIT/ML VIAL SQ SCH ×3 (05:13→21:10)
[2021-08-22] MEDS: Sacubitril/Valsartan 49/51 MG 1 TABLET PO SCH (08:13)
[2021-08-22] MEDS: Aspirin Enteric Coated 81 MG Tablet PO SCH (08:13)
[2021-08-22] MEDS: Furosemide 40 MG/4 ML VIAL IVP SCH (08:13)
[2021-08-22] MEDS: Torsemide 20 MG TABLET PO SCH (16:16)
[2021-08-23] MEDS: Sacubitril/Valsartan 49/51 MG 1 TABLET PO SCH ×2 (03:19→09:31)
[2021-08-23] MEDS: Metoprolol XL (24 HR) Succ 50 MG TAB.ER.24H PO SCH (03:19)
[2021-08-23] MEDS: *HR* Heparin 5,000 UNIT/ML VIAL SQ SCH ×2 (05:05→15:04)
[2021-08-23 06:16] LABS: Basophils % 0.3 %; Eosinophils % 0.4 %; Hematocrit 43.5 % (37.5-50.1); Hemoglobin 14.5 g/dL (12.9-16.9); Immature Granulocytes % 0.3 % (0-4); Immature Platelets 2.2 % (1.1-6.1); Lymphocytes % 68.3 %; Mean Corpuscular HGB Conc 33.3 g/dL (31.6-35.5); Mean Corpuscular Hemoglobin 29.5 pg (28.0-33.3); Mean Corpuscular Volume 88.4 fL (83.0-100.0); Mean Platelet Volume 10.3 fL (9.4-12.4); Monocytes # 0.6 K/mcL (0.0-1.3); Monocytes % 8.6 %; Neutrophils # 1.6 K/mcL (1.6-8.9); Nucleated Red Blood Cells 0.3 /100 WBC (0); Red Blood Count 4.92 M/mcL (4.19-5.50); Red Cell Distribution Width 15.8 % (11.5-14.5); Segmented Neutrophils % 22.1 %; White Blood Count 7.3 K/mcL (4.3-11.1)
[2021-08-23 06:17] LABS: Platelet Count 86 K/mcL (140-400)
[2021-08-23 06:29] LABS: BUN/Creatinine Ratio 27 (6-26); Blood Urea Nitrogen 22 mg/dL (8-23); Calcium 9.1 mg/dL (8.6-10.3); Carbon Dioxide 25 mEq/L (23-29); Chloride 97 mEq/L (98-107); Glucose 101 mg/dL (70-105); Magnesium 1.7 mg/dL (1.6-2.6); Osmolality,Calculated 273 (280-300); Phosphorous 3.5 mg/dL (2.7-4.5); Potassium 3.7 mEq/L (3.5-5.1); Sodium 130 mEq/L (136-145); eGFR For African Americans > 60 (> 60); eGFR For Non-African Americans > 60 (> 60)
[2021-08-23 06:36] LABS: Large Platelets Present (Not Present); Platelet Estimate Decreased (Normal)
[2021-08-23] MEDS: Torsemide 20 MG TABLET PO SCH (09:31)
[2021-08-23] MEDS: Aspirin Enteric Coated 81 MG Tablet PO SCH (09:31)
[2021-08-23 12:03] LABS: Bilirubin,Urine Negative (Negative); Blood,Urine Large (Negative); Clarity,Urine Turbid (Clear); Glucose,Urine (UA) Normal (Normal); Ketones,Urine Negative (Negative); Leukocyte Esterase,Urine Moderate (Negative); Nitrite,Urine Negative (Negative); Protein,Urine 100 mg/dL (Neg-Trace); Specific Gravity,Urine 1.011 (1.010-1.025); Urobilinogen,Urine Normal (Normal)
[2021-08-23 12:04] LABS: Color,Urine Red (Yellow)
[2021-08-23 16:13] VITALS: BP 145/82; PULSE 86; TEMP 97.7; O2SAT 94
== END 2021-08-23 17:14 | disposition home health service (06) | DRG 280 ==
LOC: 3BNU 15:05 → EMEROOARM 15:05 → SUATTDRO 19:21 → 3BNU 20:27 → SUATTDRO 08-20 10:07
PROVIDERS: ADMIT Internal Medicine; ATTEND Internal Medicine

== ENCOUNTER 2021-10-03 03:59 | Inpatient (IN) ==
[2021-10-03] MEDS ORDERED: Ondansetron 4 MG/2 ML VIAL IVP PRN (09:52)
[2021-10-03] MEDS ORDERED: Acetaminophen 325 MG TABLET PO PRN (09:52)
[2021-10-03] MEDS ORDERED: Naloxone 0.4 MG/ML INJ IVP PRN (09:52)
[2021-10-03 10:53] LABS: Hematocrit 46.7 % (37.5-50.1); Hemoglobin 15.2 g/dL (12.9-16.9); Mean Corpuscular HGB Conc 32.5 g/dL (31.6-35.5); Mean Corpuscular Hemoglobin 29.2 pg (28.0-33.3); Mean Corpuscular Volume 89.6 fL (83.0-100.0); Mean Platelet Volume 9.9 fL (9.4-12.4); Platelet Count 104 K/mcL (140-400); Red Blood Count 5.21 M/mcL (4.19-5.50); Red Cell Distribution Width 17.2 % (11.5-14.5); White Blood Count 16.2 K/mcL (4.3-11.1)
[2021-10-03 10:54] LABS: Monocytes # 0.8 K/mcL (0.0-1.3)
[2021-10-03 11:00] LABS: INR 1.2; Prothrombin Time 13.7 Seconds (9.4-12.1)
[2021-10-03 11:22] LABS: Anisocytosis 1+ (Not Present); Lymphocytes # 11.7 K/mcL (0.6-4.6); Neutrophils # 3.7 K/mcL (1.6-8.9); Platelet Estimate Slight Decrease (Normal); Reactive Lymphocytes Present (Not Present); Smudge Cells Present (Not Present)
[2021-10-03 11:23] LABS: BUN/Creatinine Ratio 34 (6-26); Blood Urea Nitrogen 36 mg/dL (8-23); Calcium 9.5 mg/dL (8.6-10.3); Carbon Dioxide 23 mEq/L (23-29); Chloride 107 mEq/L (98-107); Glucose 107 mg/dL (70-105); Lactate Dehydrogenase 267 Units/L (140-271); Magnesium 2.4 mg/dL (1.6-2.6); Osmolality,Calculated 293 (280-300); Potassium 4.5 mEq/L (3.5-5.1); Sodium 137 mEq/L (136-145); Troponin I 0.19 ng/mL (< 0.04); eGFR For African Americans > 60 (> 60); eGFR For Non-African Americans > 60 (> 60)
[2021-10-03 11:25] LABS: Thyroid Stimulating Hormone 6.369 mcIU/mL (0.340-5.600)
[2021-10-03] MEDS ORDERED: Perflutren Lipid Microsphere 1.3 ML in 0.9 % Sodium Chloride 8.7 ML IVP PRN (14:41)
[2021-10-03] MEDS ORDERED: Vancomycin 1,250 MG/262.5 ML IV.SOLN IVPB ONE (15:33)
[2021-10-03] MEDS ORDERED: levoFLOXacin 750 MG/150 ML 750 MG/150 ML BAG IVPB SCH (16:00)
[2021-10-03 17:06] LABS: Appearance of Pleural Fl Hazy (Clear); Total Protein,Pleural Fluid 3.7 g/dL
[2021-10-03 17:07] LABS: RBC,Pleural Fluid 5000 RBC/mcL
[2021-10-03 20:30] LABS: Basophils,Pleural Fluid 0 %; Eosinophils,Pleural Fluid 0 %
[2021-10-04] MEDS ORDERED: levoFLOXacin 750 MG/150 ML 750 MG/150 ML BAG IVPB SCH (02:00)
[2021-10-04 03:22] LABS: Bacteria,Urine Few per hpf (None-Few); Bilirubin,Urine Negative (Negative); Blood,Urine Small (Negative); Clarity,Urine Clear (Clear); Color,Urine Yellow (Yellow); Glucose,Urine (UA) Normal (Normal); Ketones,Urine Negative (Negative); Leukocyte Esterase,Urine Large (Negative); Mucus,Urine Few per lpf (None-Few); Nitrite,Urine Positive (Negative); Protein,Urine 70 mg/dL (Neg-Trace); Specific Gravity,Urine 1.023 (1.010-1.025); WBC,Urine 50-100 per hpf (0-3)
[2021-10-04] MEDS: Aspirin 81 MG TAB.CHEW PO SCH (10:35)
[2021-10-04] MEDS: Metoprolol XL (24 HR) Succ 25 MG TAB.ER.24H PO SCH ×3 (10:35→21:58)
[2021-10-04] MEDS: Furosemide 20 MG/2 ML VIAL IVP SCH ×3 (11:54→23:05)
[2021-10-04] MEDS ORDERED: Vancomycin 1,250 MG/262.5 ML IV.SOLN IVPB SCH (16:00)
[2021-10-04] MEDS ORDERED: Piperacillin/Tazobactam 3.375 GM in 0.9 % Sodium Chloride Mini Bag 100 ML IVPB SCH (17:12)
[2021-10-04 19:38] LABS: Basophils % 0.3 %; Eosinophils % 0.1 %; Hemoglobin 14.6 g/dL (12.9-16.9); Immature Granulocytes % 0.2 % (0-4); Lymphocytes # 10.9 K/mcL (0.6-4.6); Lymphocytes % 77.5 %; Mean Corpuscular HGB Conc 32.4 g/dL (31.6-35.5); Mean Corpuscular Hemoglobin 29.4 pg (28.0-33.3); Mean Corpuscular Volume 90.7 fL (83.0-100.0); Mean Platelet Volume 9.5 fL (9.4-12.4); Monocytes # 0.7 K/mcL (0.0-1.3); Neutrophils # 2.4 K/mcL (1.6-8.9); Nucleated Red Blood Cells 0.1 /100 WBC (0); Platelet Count 103 K/mcL (140-400); Red Blood Count 4.96 M/mcL (4.19-5.50); Red Cell Distribution Width 17.3 % (11.5-14.5); Segmented Neutrophils % 16.9 %; White Blood Count 14.1 K/mcL (4.3-11.1)
[2021-10-04 19:57] LABS: BUN/Creatinine Ratio 28 (6-26); Blood Urea Nitrogen 27 mg/dL (8-23); Carbon Dioxide 21 mEq/L (23-29); Chloride 106 mEq/L (98-107); Glucose 104 mg/dL (70-105); Osmolality,Calculated 287 (280-300); Potassium 3.9 mEq/L (3.5-5.1); Sodium 136 mEq/L (136-145); eGFR For African Americans > 60 (> 60); eGFR For Non-African Americans > 60 (> 60)
[2021-10-05] MEDS ORDERED: Haloperidol Lactate 5 MG/ML VIAL IM ONE (01:28)
[2021-10-05] MEDS ORDERED: *HR* LORazepam 2 MG/ML VIAL IM STA (01:29)
[2021-10-05] MEDS ORDERED: Ziprasidone 10 MG, Closed System Device IM Kit 1 EACH in Water for inj. (sterile) 0.5 ML IM ONE (01:31)
[2021-10-05 04:32] LABS: Basophils % 0.3 %; Eosinophils % 0.1 %; Immature Granulocytes % 0.3 % (0-4); Nucleated Red Blood Cells 0.4 /100 WBC (0)
[2021-10-05 04:33] LABS: Hematocrit 39.8 % (37.5-50.1); Hemoglobin 13.3 g/dL (12.9-16.9); Immature Platelets 3.1 % (1.1-6.1); Lymphocytes # 9.6 K/mcL (0.6-4.6); Lymphocytes % 79.9 %; Mean Corpuscular HGB Conc 33.4 g/dL (31.6-35.5); Mean Corpuscular Hemoglobin 29.6 pg (28.0-33.3); Mean Corpuscular Volume 88.4 fL (83.0-100.0); Mean Platelet Volume 9.6 fL (9.4-12.4); Monocytes # 0.7 K/mcL (0.0-1.3); Monocytes % 5.4 %; Neutrophils # 1.7 K/mcL (1.6-8.9); Red Cell Distribution Width 16.6 % (11.5-14.5)
[2021-10-05 04:37] LABS: Alanine Aminotransferase 20 Units/L (7-52); Albumin 3.5 g/dL (3.5-5.7); Albumin/Globulin Ratio 1.2 (1.1-2.2); Alkaline Phosphatase 70 Units/L (34-104); Aspartate Amino Transferase 31 Units/L (13-39); BUN/Creatinine Ratio 29 (6-26); Bilirubin,Direct 0.7 mg/dL (0.0-0.2); Bilirubin,Indirect 1.3 mg/dL (0.0-1.0); Blood Urea Nitrogen 26 mg/dL (8-23); Calcium 8.8 mg/dL (8.6-10.3); Carbon Dioxide 21 mEq/L (23-29); Chloride 107 mEq/L (98-107); Globulin 2.9 g/dL (2.4-3.5); Glucose 110 mg/dL (70-105); Magnesium 1.9 mg/dL (1.6-2.6); Osmolality,Calculated 285 (280-300); Phosphorous 3.4 mg/dL (2.7-4.5); Platelet Count 97 K/mcL (140-400); Potassium 4.1 mEq/L (3.5-5.1); Sodium 135 mEq/L (136-145); Total Protein 6.4 g/dL (6.4-8.9); eGFR For African Americans > 60 (> 60); eGFR For Non-African Americans > 60 (> 60)
[2021-10-05 04:51] LABS: Platelet Estimate Slight Decrease (Normal); Smudge Cells Present (Not Present)
[2021-10-05 04:54] LABS: Triiodothyronine (T3) Free 2.87 pg/mL (2.50-3.90)
[2021-10-05] MEDS: Furosemide 20 MG/2 ML VIAL IVP SCH (09:41)
[2021-10-05] MEDS: Metoprolol XL (24 HR) Succ 25 MG TAB.ER.24H PO SCH ×2 (09:41→21:23)
[2021-10-05] MEDS: Aspirin 81 MG TAB.CHEW PO SCH (09:41)
[2021-10-05] MEDS ORDERED: Furosemide 20 MG/2 ML VIAL IVP SCH (10:16)
[2021-10-05 17:17] LABS: Adenovirus Not Detected (Not Detect); Bordetella Pertussis Not Detected (Not Detect); Chlamydophila pneumoniae Not Detected (Not Detect); Coronavirus 229E Not Detected (Not Detect); Coronavirus HKU1 Not Detected (Not Detect); Coronavirus NL63 Not Detected (Not Detect); Coronavirus OC43 Not Detected (Not Detect); Human Metapneumovirus Not Detected (Not Detect); Human Rhinovirus/Enterovirus Not Detected (Not Detect); Influenza A Subtype 2009 H1 Not Detected (Not Detect); Influenza B Not Detected (Not Detect); Mycoplasma pneumoniae Not Detected (Not Detect); Parainfluenza Virus 1 Not Detected (Not Detect); Parainfluenza Virus 2 Not Detected (Not Detect); Parainfluenza Virus 3 Not Detected (Not Detect); Parainfluenza Virus 4 Not Detected (Not Detect); Respiratory Syncytial Virus Not Detected (Not Detect); SARS-CoV-2 Not Detected (Not Detect)
[2021-10-05] MEDS ORDERED: QUEtiapine Fumarate 25 MG TABLET PO SCH (21:00)
[2021-10-06 06:31] VITALS: TEMP 97.8
[2021-10-06] MEDS: Aspirin 81 MG TAB.CHEW PO SCH (08:28)
[2021-10-06] MEDS: Metoprolol XL (24 HR) Succ 25 MG TAB.ER.24H PO SCH (08:28)
[2021-10-06] MEDS ORDERED: Furosemide 40 MG TABLET PO SCH (09:00)
[2021-10-06 10:31] VITALS: BP 98/62; PULSE 98; O2SAT 97
[2021-10-06] MEDS ORDERED: Magnesium Sulfate 2 GM in D5% in Water 100 ML IVPB STA (14:07)
[2021-10-06] MEDS ORDERED: Magnesium Sulfate 2 GM/100 ML PIGGYBACK IVPB STA (14:58)
[2021-10-06 23:41] LABS: Fluid Source for Albumin PLEURAL FLUID
== END 2021-10-06 18:14 | DRG 871 ==
LOC: 3NENU → SUATTDRO 09:28
PROVIDERS: ADMIT Pharmacist; ATTEND Student in an Organized Health Care Education/Training Program